=== PATIENT | female | born 1995 | race American Indian/Alaskan Native ===

== ENCOUNTER 2016-11-19 09:52 | Emergency (ER) | payer OTHER ==
[2016-11-19 11:13] LABS: Basophils % (Auto) 0.3 % (0.0-1.8); Eosinophils % (Auto) 0.8 % (0.0-4.3); Hemoglobin 12.9 gm/dl (10.1-14.3); Mean Corpuscular HGB Conc 32 % (30-34); Mean Corpuscular Hemoglobin 26 pg (28-32); Mean Corpuscular Volume 81 fl (79-97); Platelet Count 380 K/mm3 (140-440); Red Blood Count 4.92 M/mm3 (3.65-5.03); Red Cell Distribution Width 13.4 % (13.2-15.2); White Blood Count 14.4 K/mm3 (4.5-11.0)
[2016-11-19 11:29] LABS: Alanine Aminotransferase 9 units/L (7-56); Albumin 3.8 g/dL (3.9-5); Albumin/Globulin Ratio 0.9 %; Alkaline Phosphatase 111 units/L (35-129); Anion Gap 17 mmol/L; BUN/Creatinine Ratio 14.28; Bilirubin,Total 0.4 mg/dL (0.1-1.2); Blood Urea Nitrogen 10 mg/dL (7-17); Calcium 9.2 mg/dL (8.4-10.2); Carbon Dioxide 25 mmol/L (22-30); Chloride 99.2 mmol/L (98-107); Glucose 91 mg/dL (65-100); Lipase 17 units/L (13-60); Potassium 3.9 mmol/L (3.6-5.0); Sodium 137 mmol/L (137-145); Total Protein 8.1 g/dL (6.3-8.2)
[2016-11-19 11:38] LABS: Bilirubin,Urine NEG (Negative); Blood,Urine NEG (Negative); Ketones,Urine NEG (Negative); Leukocyte Esterase,Urine SM (Negative); Mucus,Urine 1+ /HPF; Nitrite,Urine NEG (Negative); Protein,Urine <15 mg/dL mg/dL (Negative); Urobilinogen,Urine < 2.0 mg/dL (<2.0)
[2016-11-19] MEDS ORDERED: MOTRIN PO ONE (14:13)
--- NOTE | 2016-11-19 14:18 | Emergency Department Report ---
ED Abdominal Pain HPI - General Chief Complaint: Abdominal Pain Stated Complaint: RT SIDE PAIN Time Seen by Provider: 11/19/16 10:43 Source: patient Mode of arrival: Ambulatory Limitations: No Limitations - History of Present Illness Initial Comments: 21 yo female with no significant past medical history presents to the hospital complaining of right abdominal pain since yesterday. Pt complains of intermittent sharp right upper quadrant pain rated 8/10 intensity. Pain is worse with palpation, movement, and deep inspiration. Patient denies associated symptoms including shortness of breath, nausea, vomiting, fever, dysuria, or hematuria. Patient saw her PMD earlier in the week for lower abdominal pain and was prescribed At his for constipation. She was told she will need outpatient [facility] ultrasound. - Related Data Previous Rx's Medication Instructions Recorded Last Taken Type Amoxicillin [Amoxicillin TAB] 875 mg PO BID #20 tablet 06/26/16 Unknown Rx Prednisone [predniSONE 10 mg 10 mg PO .TAPER #1 tab.ds.pk 06/26/16 Unknown Rx (6-Day Pack, 21 Tabs)] Amoxicillin/K Clav Tab [Augmentin 1 tab PO Q12HR #20 tab 06/30/16 Unknown Rx 875 mg] Lidocaine Viscous 2% 15 ml MM TID #100 ml 06/30/16 Unknown Rx traMADol [Ultram 50 MG tab] 50 mg PO Q6HR PRN #20 tablet 11/19/16 Unknown Rx Allergies Allergy/AdvReac Type Severity Reaction Status Date / Time No Known Allergies Allergy Verified 06/30/16 05:04 ED Review of Systems ROS: Stated complaint: RT SIDE PAIN Other details as noted in HPI Comment: All other systems reviewed and negative Other: Constitutional: No fevers chills Eyes: No eye pain visual changes ENT: No ear pain or throat pain Neck: Denies pain Respiratory: Denies cough wheezing shortness of breath Cardiovascular: Denies chest pain, palpitations, syncope GI: As per HPI : Denies dysuria Musculoskeletal: Denies back pain Skin: Denies rash, lesions, erythema Neurologic: Denies headache, numbness, weakness Psychiatric: Denies suicidal ideation, hallucinations ED Past Medical Hx - Past Medical History Previous Medical History?: Yes Additional medical history: constipatin - Surgical History Past Surgical History?: No - Social History Smoking Status: Current Every Day Smoker Substance Use Type: Other - Medications Home Medications: Home Medications Medication Instructions Recorded Confirmed Last Taken Type Amoxicillin [Amoxicillin TAB] 875 mg PO BID #20 tablet 06/26/16 Unknown Rx Prednisone [predniSONE 10 mg 10 mg PO .TAPER #1 tab.ds.pk 06/26/16 Unknown Rx (6-Day Pack, 21 Tabs)] Amoxicillin/K Clav Tab [Augmentin 1 tab PO Q12HR #20 tab 06/30/16 Unknown Rx 875 mg] Lidocaine Viscous 2% 15 ml MM TID #100 ml 06/30/16 Unknown Rx traMADol [Ultram 50 MG tab] 50 mg PO Q6HR PRN #20 tablet 11/19/16 Unknown Rx ED Physical Exam - General Limitations: No Limitations - Other Other exam information: General: No limitations, patient is alert in no acute distress Head exam: Atraumatic, normocephalic Eyes exam: Normal appearance, nonicteric sclera ENT: Moist mucous membrane, normal oropharynx Neck exam: Normal inspection, full range of motion Respiratory exam: Clear to auscultation bilateral, no wheezes, rales, crackles Cardiovascular: Normal rate and rhythm, normal heart sounds Abdomen: Soft, nondistended, tenderness along the right upper quadrant abdominal muscle when flexing abdominal muscles. No rebound or guarding Extremity: Full range of motion normal inspection no deformity Back: Normal Inspection, full range of motion, no tenderness Neurologic: Alert, oriented x3, cranial nerves intact, no motor or sensory deficit Psychiatric: normal affect, normal mood Skin: Warm, dry, intact ED Course Vital Signs 11/19/16 11/19/16 11/19/16 10:38 14:20 14:21 Temperature 98.6 F 98.2 F Pulse Rate 91 H 86 Respiratory 18 16 16 Rate Blood Pressure 132/82 Blood Pressure 124/73 [Right] O2 Sat by Pulse 99 100 100 Oximetry ED Medical Decision Making - Lab Data Result diagrams: 11/19/16 10:54 11/19/16 10:54 Lab Results 11/19/16 11/19/16 11/19/16 Range/Units 10:54 10:54 Unknown WBC 14.4 H (4.5-11.0) K/mm3 RBC 4.92 (3.65-5.03) M/mm3 Hgb 12.9 (10.1-14.3) gm/dl Hct 40.0 (30.3-42.9) % MCV 81 (79-97) fl MCH 26 L (28-32) pg MCHC 32 (30-34) % RDW 13.4 (13.2-15.2) % Plt Count 380 (140-440) K/mm3 Lymph % (Auto) 21.0 (13.4-35.0) % [place] % (Auto) 8.2 H (0.0-7.3) % Eos % (Auto) 0.8 (0.0-4.3) % Baso % (Auto) 0.3 (0.0-1.8) % Lymph # 3.0 (1.2-5.4) K/mm3 [place] # 1.2 H (0.0-0.8) K/mm3 Eos # 0.1 (0.0-0.4) K/mm3 Baso # 0.0 (0.0-0.1) K/mm3 Seg Neutrophils % 69.7 (40.0-70.0) % Seg Neutrophils # 10.0 H (1.8-7.7) K/mm3 Sodium 137 (137-145) mmol/L Potassium 3.9 (3.6-5.0) mmol/L Chloride 99.2 (98-107) mmol/L Carbon Dioxide 25 (22-30) mmol/L Anion Gap 17 mmol/L BUN 10 (7-17) mg/dL Creatinine 0.7 (0.7-1.2) mg/dL Estimated GFR > 60 ml/min BUN/Creatinine Ratio 14.28 % Glucose 91 (65-100) mg/dL Calcium 9.2 (8.4-10.2) mg/dL Total Bilirubin 0.4 (0.1-1.2) mg/dL AST 14 (5-40) units/L ALT 9 (7-56) units/L Alkaline Phosphatase 111 (35-129) units/L Total Protein 8.1 (6.3-8.2) g/dL Albumin 3.8 L (3.9-5) g/dL Albumin/Globulin Ratio 0.9 % Lipase 17 (13-60) units/L Urine Color Yellow (Yellow) Urine Turbidity Slightly-cloudy (Clear) Urine pH 6.0 (5.0-7.0) Ur Specific [place] 1.021 (1.003-1.030) Urine Protein <15 mg/dl (Negative) mg/dL Urine Glucose (UA) Neg (Negative) mg/dL Urine Ketones Neg (Negative) mg/dL Urine Blood Neg (Negative) Urine Nitrite Neg (Negative) Urine Bilirubin Neg (Negative) Urine Urobilinogen < 2.0 (<2.0) mg/dL Ur Leukocyte Esterase Sm (Negative) Urine WBC (Auto) 5.0 (0.0-6.0) /HPF Urine RBC (Auto) 1.0 (0.0-6.0) /HPF U Epithel Cells (Auto) 24.0 H (0-13.0) /HPF Urine Mucus 1+ /HPF Urine HCG, Qual (Negative) 11/19/16 Range/Units Unknown WBC (4.5-11.0) K/mm3 RBC (3.65-5.03) M/mm3 Hgb (10.1-14.3) gm/dl Hct (30.3-42.9) % MCV (79-97) fl MCH (28-32) pg MCHC (30-34) % RDW (13.2-15.2) % Plt Count (140-440) K/mm3 Lymph % (Auto) (13.4-35.0) % [place] % (Auto) (0.0-7.3) % Eos % (Auto) (0.0-4.3) % Baso % (Auto) (0.0-1.8) % Lymph # (1.2-5.4) K/mm3 [place] # (0.0-0.8) K/mm3 Eos # (0.0-0.4) K/mm3 Baso # (0.0-0.1) K/mm3 Seg Neutrophils % (40.0-70.0) % Seg Neutrophils # (1.8-7.7) K/mm3 Sodium (137-145) mmol/L Potassium (3.6-5.0) mmol/L Chloride (98-107) mmol/L Carbon Dioxide (22-30) mmol/L Anion Gap mmol/L BUN (7-17) mg/dL Creatinine (0.7-1.2) mg/dL Estimated GFR ml/min BUN/Creatinine Ratio % Glucose (65-100) mg/dL Calcium (8.4-10.2) mg/dL Total Bilirubin (0.1-1.2) mg/dL AST (5-40) units/L ALT (7-56) units/L Alkaline Phosphatase (35-129) units/L Total Protein (6.3-8.2) g/dL Albumin (3.9-5) g/dL Albumin/Globulin Ratio % Lipase (13-60) units/L Urine Color (Yellow) Urine Turbidity (Clear) Urine pH (5.0-7.0) Ur Specific [place] (1.003-1.030) Urine Protein (Negative) mg/dL Urine Glucose (UA) (Negative) mg/dL Urine Ketones (Negative) mg/dL Urine Blood (Negative) Urine Nitrite (Negative) Urine Bilirubin (Negative) Urine Urobilinogen (<2.0) mg/dL Ur Leukocyte Esterase (Negative) Urine WBC (Auto) (0.0-6.0) /HPF Urine RBC (Auto) (0.0-6.0) /HPF U Epithel Cells (Auto) (0-13.0) /HPF Urine Mucus /HPF Urine HCG, Qual Negative (Negative) - Radiology Data Radiology results: report reviewed ct a/p without contrast: 4mm stone in the right renal pelvis, no evidence of obstruction. - Medical Decision Making Plan to discharge patient home with pain medications for abdominal pain. Ultrasound negative for gallstones showed mild [place]. CT abdomen and pelvis without contrast does not reveal [place] but does reveal for Garcia stone in the right renal pelvis and no evidence of obstruction. No other abnormality identified. Suspect the patient's pain is due to abdominal wall strain since she lacks associated GI or respiratory symptoms and pain is reproducible with movement and palpation. - Differential Diagnosis biliary colic, abdominal muscle strain, infiltrate, PUD Critical Care Time: No Critical care attestation.: If time is entered above; I have spent that time in minutes in the direct care of this critically ill patient, excluding procedure time. ED Disposition Clinical Impression: Abdominal wall strain, Renal stone Disposition: DISCHARGED TO HOME OR SELFCARE Is pt being admited?: No Does the pt Need Aspirin: No Condition: Stable Instructions: Abdominal Pain (ED), Kidney Stones (ED) Additional Instructions: You may take [id number] ibuprofen and/or the prescribed tramadol for pain. Please note the tramadol can cause drowsiness and constipation. Take stool softeners as needed. Do not drive with taking this medication. Follow up with doctor for further evaluation. Return if symptoms worsen CAT scan shows a 4 mm stone in the right renal pelvis of the kidney without any signs of obstruction. This is unlikely the cause of your pain today. However, if you develop severe pain in your right flank with associated nausea, vomiting , and blood in your urine this can be the stone moving forward Prescriptions: traMADol [Ultram 50 MG tab] 50 mg PO Q6HR PRN #20 tablet PRN Reason: Pain Referrals: PRIMARY CARE, [Primary Care Provider] - 3-5 Days Time of Disposition: 17:03
[2016-11-19 14:21] VITALS: BP 124/73
--- NOTE | 2016-11-19 15:31 | Ultrasound Report ---
Limited abdominal ultrasound: Right upper quadrant pain. Imaging of the liver, pancreas, and gallbladder are echogenically unremarkable. The diameter of the CBD is 2.6 mm. The right renal length is 9.7 cm. The echogenicity of the kidney is unremarkable. There is mild dilatation of the central collecting system but there is no peripheral dilatation identified. No calculus, shadowing, or mass identified. The transverse diameter of the proximal abdominal aorta is 1.4 cm. Impressions: Suspect mild right hydronephrosis.
--- NOTE | 2016-11-19 16:55 | Cat Scan Report ---
CT of the abdomen and pelvis without contrast. History: Right abdominal pain/right hydronephrosis suspected on ultrasound performed today. Findings: The liver and spleen appear normal. The pancreas and gallbladder are unremarkable. The kidneys are normal in size and configuration with no evidence of renal mass. There is a 4 mm in diameter calcification which appears to lie in the dependent portion of the right renal pelvis, but no hydronephrosis is seen at this time. No ureteral calcifications or obstructing lesions are seen. There are no pelvic masses or abnormal fluid collections. No mesenteric inflammation is seen. The appendix is not identified, but there is no radiographic evidence of appendicitis. Impression: 4 mm stone in the right renal pelvis with no evidence of obstruction.
== END 2016-11-19 17:49 | disposition home or self-care (01) ==
LOC: ED 09:52
DX: S39.011A Strain of muscle, fascia and tendon of abdomen, initial encounter (principal); N20.0 Calculus of kidney; F17.200 Nicotine dependence, unspecified, uncomplicated; X58.XXXA Exposure to other specified factors, initial encounter; Y93.89 Activity, other specified; Y99.8 Other external cause status; Y92.89 Other specified places as the place of occurrence of the external cause
CPT/HCPCS: 36415; 74176; 76705; 80053; 81001; 81025; 83690; 85025

== ENCOUNTER 2016-11-25 10:33 | Emergency (ER) | payer OTHER ==
[2016-11-25 10:42] VITALS: BP 116/62
[2016-11-25] MEDS ORDERED: FLAGYL PO ONE (13:53)
[2016-11-25] MEDS ORDERED: XYLOCAINE 1% MPF 5 mL INFILTRATI ONE (13:53)
[2016-11-25] MEDS ORDERED: ZITHROMAX PO ONE (13:53)
[2016-11-25] MEDS ORDERED: ROCEPHIN IM ONE (13:53)
--- NOTE | 2016-11-25 14:08 | Emergency Department Report ---
ED Female HPI - General Chief complaint: Urogenital-Female Stated complaint: VAGINAL DISCHARGE Source: patient Mode of arrival: Ambulatory Limitations: No Limitations - History of Present Illness Initial comments: 21-year-old -[place] female comes in for complaint of vaginal discharge and possible STD exposure. Patient denies any abdominal pain no nausea no vomiting no fever no chills she also denies any dysuria. Patient reports that she sexually active one partner the last month she did not use protection. She reports vaginal discharge and itchiness 2 days. MD Complaint: vaginal discharge -: days(s) (2) Severity scale (0 -10): 0 - Related Data Previous Rx's Medication Instructions Recorded Last Taken Type Amoxicillin [Amoxicillin TAB] 875 mg PO BID #20 tablet 06/26/16 Unknown Rx Prednisone [predniSONE 10 mg 10 mg PO .TAPER #1 tab.ds.pk 06/26/16 Unknown Rx (6-Day Pack, 21 Tabs)] Amoxicillin/K Clav Tab [Augmentin 1 tab PO Q12HR #20 tab 06/30/16 Unknown Rx 875 mg] Lidocaine Viscous 2% 15 ml MM TID #100 ml 06/30/16 Unknown Rx traMADol [Ultram 50 MG tab] 50 mg PO Q6HR PRN #20 tablet 11/19/16 Unknown Rx Allergies Allergy/AdvReac Type Severity Reaction Status Date / Time No Known Allergies Allergy Verified 06/30/16 05:04 ED Review of Systems ROS: Stated complaint: VAGINAL DISCHARGE Other details as noted in HPI ED Past Medical Hx - Past Medical History Previous Medical History?: Yes Hx Kidney Stones: Yes Additional medical history: constipation - Surgical History Past Surgical History?: No - Social History Smoking Status: Current Every Day Smoker Substance Use Type: Non Opiate Pain - Medications Home Medications: Home Medications Medication Instructions Recorded Confirmed Last Taken Type Amoxicillin [Amoxicillin TAB] 875 mg PO BID #20 tablet 06/26/16 Unknown Rx Prednisone [predniSONE 10 mg 10 mg PO .TAPER #1 tab.ds.pk 06/26/16 Unknown Rx (6-Day Pack, 21 Tabs)] Amoxicillin/K Clav Tab [Augmentin 1 tab PO Q12HR #20 tab 06/30/16 Unknown Rx 875 mg] Lidocaine Viscous 2% 15 ml MM TID #100 ml 06/30/16 Unknown Rx traMADol [Ultram 50 MG tab] 50 mg PO Q6HR PRN #20 tablet 11/19/16 Unknown Rx ED Physical Exam - General Limitations: No Limitations - Head Head exam: Present: atraumatic, normocephalic - Respiratory Respiratory exam: Present: normal lung sounds bilaterally - Cardiovascular Cardiovascular Exam: Present: regular rate, normal rhythm, normal heart sounds - GI/Abdominal GI/Abdominal exam: Present: soft. Absent: distended, tenderness - Neurological Exam Neurological exam: Present: alert, oriented X3 - Psychiatric Psychiatric exam: Present: normal affect, normal mood ED Course Vital Signs 11/25/16 10:39 Temperature 98.7 F Pulse Rate 72 Respiratory 20 Rate Blood Pressure 116/62 O2 Sat by Pulse 99 Oximetry ED Medical Decision Making - Medical Decision Making Patient's been evaluated by this provider fast track. Discussed with patient that we will treat her presumptively for STDs with treated for Chlamydia gonorrhea and trichomonas. We will send cultures for gonorrhea and chlamydia. Discussed patient and she needs to talk to her partner to inform them that she is having vaginal discharge and able May want to be treated or tested. Patient verbalizes understanding. Critical care attestation.: If time is entered above; I have spent that time in minutes in the direct care of this critically ill patient, excluding procedure time. ED Disposition Clinical Impression: Possible exposure to STD Disposition: DISCHARGED TO HOME OR SELFCARE Is pt being admited?: No Does the pt Need Aspirin: No Condition: Stable Instructions: Safe Sex (ED), Sexually Transmitted Diseases (ED) Additional Instructions: Please inform your partner that you have been tested and treated for STDs. Encouraged to use condoms stay in a monogamous relationship also recommended for you to have HIV tests every 3-6 months if you have an unprotected intercourse. Referrals: PRIMARY CARE, [Primary Care Provider] - 3-5 Days Forms: Work/School Release Form(ED)
== END 2016-11-25 15:02 | disposition home or self-care (01) ==
LOC: ED 10:33
DX: Z20.2 Contact with and (suspected) exposure to infections with a predominantly sexual mode of transmission (principal); F17.210 Nicotine dependence, cigarettes, uncomplicated
CPT/HCPCS: 81025; 96372; 99283; J0696

== ENCOUNTER 2017-07-24 01:37 | Emergency (ER) | payer OTHER ==
[2017-07-24 05:43] LABS: Bilirubin,Urine NEG (Negative); Blood,Urine NEG (Negative); Ketones,Urine NEG (Negative); Leukocyte Esterase,Urine NEG (Negative); Mucus,Urine FEW /HPF; Nitrite,Urine NEG (Negative); Protein,Urine <15 mg/dL mg/dL (Negative); Urobilinogen,Urine < 2.0 mg/dL (<2.0)
--- NOTE | 2017-07-24 06:08 | Emergency Department Report ---
ED Female HPI - General Chief complaint: Urogenital-Female Stated complaint: STD Time Seen by Provider: 07/24/17 05:12 Source: patient Mode of arrival: Ambulatory Limitations: No Limitations - History of Present Illness Initial comments: This is a 21-year-old female nontoxic, well nourished in appearance, no acute signs of distress presents to the ED for a test. Patient stated she missed her menstrual cycle and took a test this morning with a positive result. Patient also states she is concerned about possible STD due to discomfort when urinating. Patient denies any vaginal discharge, fever, chills, nausea, dysuria, hematuria, polyuria, vomiting, abdominal pain, pelvic pain, vaginal bleeding, back pain. Patient describes discomfort as pressure when urinating. Patient denies any allergies. Past medical history includes kidney stones. MD Complaint: possible STD, other () -: days(s) (1) Severity scale (0 -10): 0 Improves with: none Worsens with: none Are you Now?: Yes Associated Symptoms: denies: vaginal discharge, vaginal bleeding, abdominal pain , nausea/vomiting, fever/chills, headaches, loss of appetite, dysuria, hematuria , rash, seizure, shortness of breath, syncope, weakness - Related Data Previous Rx's Medication Instructions Recorded Last Taken Type Amoxicillin [Amoxicillin TAB] 875 mg PO BID #20 tablet 06/26/16 Unknown Rx Prednisone [predniSONE 10 mg 10 mg PO .TAPER #1 tab.ds.pk 06/26/16 Unknown Rx (6-Day Pack, 21 Tabs)] Amoxicillin/K Clav Tab [Augmentin 1 tab PO Q12HR #20 tab 06/30/16 Unknown Rx 875 mg] Lidocaine Viscous 2% 15 ml MM TID #100 ml 06/30/16 Unknown Rx traMADol [Ultram 50 MG tab] 50 mg PO Q6HR PRN #20 tablet 11/19/16 Unknown Rx Allergies Allergy/AdvReac Type Severity Reaction Status Date / Time No Known Allergies Allergy Verified 06/30/16 05:04 ED Review of Systems ROS: Stated complaint: STD Other details as noted in HPI Constitutional: denies: chills, fever Eyes: denies: eye pain, eye discharge, vision change ENT: denies: ear pain, throat pain Respiratory: denies: cough, shortness of breath, wheezing Cardiovascular: denies: chest pain, palpitations Endocrine: no symptoms reported Gastrointestinal: denies: abdominal pain, nausea, diarrhea Genitourinary: denies: urgency, dysuria, discharge Musculoskeletal: denies: back pain, joint swelling, arthralgia Skin: denies: rash, lesions Neurological: denies: headache, weakness, paresthesias Psychiatric: denies: anxiety, depression Hematological/Lymphatic: denies: easy bleeding, easy bruising ED Past Medical Hx - Past Medical History Previous Medical History?: Yes Hx Kidney Stones: Yes Additional medical history: constipation - Surgical History Past Surgical History?: No - Social History Smoking Status: Never Smoker Substance Use Type: None - Medications Home Medications: Home Medications Medication Instructions Recorded Confirmed Last Taken Type Amoxicillin [Amoxicillin TAB] 875 mg PO BID #20 tablet 06/26/16 Unknown Rx Prednisone [predniSONE 10 mg 10 mg PO .TAPER #1 tab.ds.pk 06/26/16 Unknown Rx (6-Day Pack, 21 Tabs)] Amoxicillin/K Clav Tab [Augmentin 1 tab PO Q12HR #20 tab 06/30/16 Unknown Rx 875 mg] Lidocaine Viscous 2% 15 ml MM TID #100 ml 06/30/16 Unknown Rx traMADol [Ultram 50 MG tab] 50 mg PO Q6HR PRN #20 tablet 11/19/16 Unknown Rx ED Physical Exam - General Limitations: No Limitations General appearance: alert, in no apparent distress - Head Head exam: Present: atraumatic, normocephalic - Eye Eye exam: Present: normal appearance, PERRL, EOMI. Absent: scleral icterus, conjunctival injection, nystagmus, periorbital swelling, periorbital tenderness Pupils: Present: normal accommodation - ENT ENT exam: Present: normal exam, normal orophraynx, mucous membranes moist, TM's normal bilaterally, normal external ear exam - Neck Neck exam: Present: normal inspection - Respiratory Respiratory exam: Present: normal lung sounds bilaterally. Absent: respiratory distress - Cardiovascular Cardiovascular Exam: Present: regular rate, normal rhythm. Absent: systolic murmur, diastolic murmur, rubs, gallop - GI/Abdominal GI/Abdominal exam: Present: soft, normal bowel sounds - Extremities Exam Extremities exam: Present: normal inspection - Back Exam Back exam: Present: normal inspection - Neurological Exam Neurological exam: Present: alert, oriented X3 - Psychiatric Psychiatric exam: Present: normal affect, normal mood - Skin Skin exam: Present: warm, dry, intact, normal color. Absent: rash ED Course Vital Signs 07/24/17 02:21 Temperature 98.5 F Pulse Rate 82 Respiratory 18 Rate Blood Pressure 146/68 O2 Sat by Pulse 98 Oximetry - Reevaluation(s) Reevaluation #1: 07/24/17 06:05 Patient is speaking in full sentences with no signs of distress noted. ED Medical Decision Making - Medical Decision Making This is a 21-year-old female that presents with positive and possible STD. PAtient is stable and was examined by me. Ua within normal limits. Patient stated she refuses wet prep and g/c exam. Patient staed she just wants to be treated empirically. I instructed the patient that I will not know if patient has Trichomonas, bacterial vaginosis, or yeast infection the patient states she' ll follow-up with her [facility] for her. At time time of discharge, the patient does not seem toxic or ill in appearance. No acute signs of distress noted. Patient agrees to discharge treatment plan of care. No further questions noted by the patient. Critical care attestation.: If time is entered above; I have spent that time in minutes in the direct care of this critically ill patient, excluding procedure time. ED Disposition Clinical Impression: Possible exposure to STD Qualifiers: Weeks of gestation: unspecified Qualified Code(s): Z34.90 - Encounter for supervision of normal , unspecified, unspecified trimester Disposition: DC-01 TO HOME OR SELFCARE Is pt being admited?: No Does the pt Need Aspirin: No Condition: Stable Instructions: (ED), Safe Sex (ED) Additional Instructions: Follow-up with a [facility] OF ANALYTICAL DEVELOPMENT for further exam such as possible Trichomonas, bacterial vaginosis, yeast infection in 24 hours or if symptoms worsen and continue return to emergency room as soon as possible. Referrals: PRIMARY CAREMD [Primary Care Provider] - 3-5 Days [facility] [Outside] - 3-5 Days [facility] [Outside] - 3-5 Days SERGIO TURNER MD [Staff Physician] - 24 Hours [facility] [Provider Group] - 24 Hours Forms: Work/School Release Form(ED)
[2017-07-24 06:48] VITALS: BP 139/81
== END 2017-07-24 06:48 | disposition home or self-care (01) ==
LOC: ED 01:37
DX: Z34.90 Encounter for supervision of normal pregnancy, unspecified, unspecified trimester (principal)
CPT/HCPCS: 36415; 81001; 81025; 84702; 87086; 99283

== ENCOUNTER 2017-08-09 04:34 | Emergency (ER) | payer OTHER ==
[2017-08-09 06:35] LABS: Red Blood Count 4.68 M/mm3 (3.65-5.03); White Blood Count 13.3 K/mm3 (4.5-11.0)
[2017-08-09 06:36] LABS: Hematocrit 39.1 % (30.3-42.9); Hemoglobin 12.8 gm/dl (10.1-14.3); Mean Corpuscular HGB Conc 33 % (30-34); Mean Corpuscular Hemoglobin 27 pg (28-32); Mean Corpuscular Volume 84 fl (79-97); Platelet Count 323 K/mm3 (140-440); Red Cell Distribution Width 13.2 % (13.2-15.2)
[2017-08-09 07:25] LABS: Anisocytosis 1+; Basophils % (Manual) 0 % (0.0-1.8); Blastocytes % (Manual) 0 %; Diff Status Complete; Giant Platelets Rare; Polychromasia Rare; Stomatocytes 1+
[2017-08-09 07:38] LABS: Bilirubin,Urine NEG (Negative); Blood,Urine MOD (Negative); Ketones,Urine NEG (Negative); Leukocyte Esterase,Urine NEG (Negative); Mucus,Urine FEW /HPF; Nitrite,Urine NEG (Negative); Protein,Urine <15 mg/dL mg/dL (Negative); Urobilinogen,Urine < 2.0 mg/dL (<2.0)
[2017-08-09 08:08] VITALS: BP 142/50
--- NOTE | 2017-08-09 08:31 | Ultrasound Report ---
FINAL REPORT EXAM: US OB < = 14 WEEKS FETUS HISTORY: VAGINAL BLEEDING 7 WEEKS COMPARISONS: None. FINDINGS: Transabdominal grayscale, color Doppler and M-mode first-trimester ultrasound There is a single living intrauterine with recorded cardiac activity of 137 beats per minute and crown-rump length of approximately 11 millimeters corresponding to estimated gestational age of 7 weeks 1 day and delivery date of 03/27/2017. A small suggested perigestational hemorrhage involves less than 25 percent of the gestational sac surface area. There is no significant free fluid in the pelvis. A 2.7 centimeter functional right ovarian cyst is noted. The ovaries are otherwise sonographically unremarkable and measure 4.1 x 3.4 x 3.3 cm on the right and 3.8 x 2.2 x 2 cm on the left. IMPRESSION: Single living intrauterine as detailed above. There is a small perigestational hemorrhage involving less than 25 percent of the gestational sac surface area.
--- NOTE | 2017-08-09 12:06 | Emergency Department Report ---
ED Female HPI - General Chief complaint: Vaginal Bleeding Stated complaint: POSSIBLE MISCARRIAGE Time Seen by Provider: 08/09/17 12:02 Source: patient Mode of arrival: Ambulatory Limitations: No Limitations - History of Present Illness Initial comments: The patient has had a single visit with [facility] for . She is 7 weeks by dates. She started to have a small amount of vaginal bleeding yesterday between 3 and 4 PM. She has some cramping but that has not resolved. She does not complain of fever chills or any other specific symptoms. She is asymptomatic at this time. MD Complaint: vaginal bleeding -: minutes(s) Severity: mild Quality: cramping Consistency: now resolved Are you Now?: Yes Associated Symptoms: denies other symptoms - Related Data Sexually active: No Previous Rx's Medication Instructions Recorded Last Taken Type Amoxicillin [Amoxicillin TAB] 875 mg PO BID #20 tablet 06/26/16 Unknown Rx Prednisone [predniSONE 10 mg 10 mg PO .TAPER #1 tab.ds.pk 06/26/16 Unknown Rx (6-Day Pack, 21 Tabs)] Amoxicillin/K Clav Tab [Augmentin 1 tab PO Q12HR #20 tab 06/30/16 Unknown Rx 875 mg] Lidocaine Viscous 2% 15 ml MM TID #100 ml 06/30/16 Unknown Rx traMADol [Ultram 50 MG tab] 50 mg PO Q6HR PRN #20 tablet 11/19/16 Unknown Rx Allergies Allergy/AdvReac Type Severity Reaction Status Date / Time No Known Allergies Allergy Verified 06/30/16 05:04 ED Review of Systems ROS: Stated complaint: POSSIBLE MISCARRIAGE Other details as noted in HPI Constitutional: denies: chills, fever Eyes: denies: eye pain, eye discharge, vision change ENT: denies: ear pain, throat pain Respiratory: denies: cough, shortness of breath, wheezing Cardiovascular: denies: chest pain, palpitations Endocrine: no symptoms reported Gastrointestinal: denies: abdominal pain, nausea, diarrhea Genitourinary: abnormal menses. denies: urgency, dysuria, discharge Musculoskeletal: denies: back pain, joint swelling, arthralgia Skin: denies: rash, lesions Neurological: denies: headache, weakness, paresthesias Psychiatric: denies: anxiety, depression Hematological/Lymphatic: denies: easy bleeding, easy bruising ED Past Medical Hx - Past Medical History Previous Medical History?: Yes Hx Kidney Stones: Yes Additional medical history: constipation - Social History Smoking Status: Former Smoker - Medications Home Medications: Home Medications Medication Instructions Recorded Confirmed Last Taken Type Amoxicillin [Amoxicillin TAB] 875 mg PO BID #20 tablet 06/26/16 Unknown Rx Prednisone [predniSONE 10 mg 10 mg PO .TAPER #1 tab.ds.pk 06/26/16 Unknown Rx (6-Day Pack, 21 Tabs)] Amoxicillin/K Clav Tab [Augmentin 1 tab PO Q12HR #20 tab 06/30/16 Unknown Rx 875 mg] Lidocaine Viscous 2% 15 ml MM TID #100 ml 06/30/16 Unknown Rx traMADol [Ultram 50 MG tab] 50 mg PO Q6HR PRN #20 tablet 11/19/16 Unknown Rx ED Physical Exam - General Limitations: No Limitations General appearance: alert, in no apparent distress - Head Head exam: Present: atraumatic, normocephalic - Eye Eye exam: Present: normal appearance. Absent: scleral icterus - ENT ENT exam: Present: mucous membranes moist - Neck Neck exam: Present: normal inspection - Respiratory Respiratory exam: Present: normal lung sounds bilaterally. Absent: respiratory distress - Cardiovascular Cardiovascular Exam: Present: regular rate, normal rhythm. Absent: systolic murmur, diastolic murmur, rubs, gallop - GI/Abdominal GI/Abdominal exam: Present: soft, normal bowel sounds. Absent: distended, tenderness, guarding, rebound, rigid - Extremities Exam Extremities exam: Present: normal inspection - Back Exam Back exam: Present: normal inspection - Neurological Exam Neurological exam: Present: alert, oriented X3, CN II-XII intact. Absent: motor sensory deficit - Psychiatric Psychiatric exam: Present: normal affect, normal mood - Skin Skin exam: Present: warm, dry, intact, normal color. Absent: rash ED Course Vital Signs 08/09/17 08/09/17 05:50 08:07 Temperature 98.4 F 98.2 F Pulse Rate 70 72 Respiratory 20 18 Rate Blood Pressure 125/73 142/50 O2 Sat by Pulse 100 100 Oximetry ED Medical Decision Making - Lab Data Result diagrams: 08/09/17 06:00 Laboratory Results - last 24 hr 08/09/17 08/09/17 08/09/17 06:00 06:00 06:00 WBC 13.3 H RBC 4.68 Hgb 12.8 Hct 39.1 MCV 84 MCH 27 L MCHC 33 RDW 13.2 Plt Count 323 Add Manual Diff Complete Total Counted 100 Seg Neuts % (Manual) 62.0 Band Neutrophils % 0 Lymphocytes % (Manual) 31.0 Reactive Lymphs % (Man) 0 Monocytes % (Manual) 6.0 Eosinophils % (Manual) 1.0 Basophils % (Manual) 0 Metamyelocytes % 0 Myelocytes % 0 Promyelocytes % 0 Blast Cells % 0 Nucleated RBC % Not Reportable Seg Neutrophils # Man 8.2 H Band Neutrophils # 0.0 Lymphocytes # (Manual) 4.1 Abs React Lymphs (Man) 0.0 Monocytes # (Manual) 0.8 Eosinophils # (Manual) 0.1 Basophils # (Manual) 0.0 Metamyelocytes # 0.0 Myelocytes # 0.0 Promyelocytes # 0.0 Blast Cells # 0.0 WBC Morphology Not Reportable Hypersegmented Neuts Not Reportable Hyposegmented Neuts Not Reportable Hypogranular Neuts Not Reportable Smudge Cells Not Reportable Toxic Granulation Not Reportable Toxic Vacuolation Not Reportable Dohle Bodies Not Reportable Pelger-Huet Anomaly Not Reportable Rossy Rods Not Reportable Platelet Estimate Appears normal Clumped Platelets Not Reportable Plt Clumps, EDTA Not Reportable Large Platelets Not Reportable Giant Platelets Rare Platelet Satelliting Not Reportable Plt Morphology Comment Not Reportable RBC Morphology Not Reportable Dimorphic RBCs Not Reportable Polychromasia Rare Hypochromasia Not Reportable Poikilocytosis Not Reportable Anisocytosis 1+ Microcytosis Not Reportable Macrocytosis Not Reportable Spherocytes Not Reportable Pappenheimer Bodies Not Reportable Sickle Cells Not Reportable Target Cells Not Reportable Tear Drop Cells Not Reportable Ovalocytes Not Reportable Stomatocytes 1+ Helmet Cells Not Reportable Ramírez-Normanna Bodies Not Reportable [place] Rings Not Reportable [place] Cells Not Reportable Bite Cells Not Reportable Crenated Cell Not Reportable Elliptocytes Not Reportable Acanthocytes (Spur) Not Reportable Rouleaux Not Reportable Hemoglobin C Crystals Not Reportable Schistocytes Not Reportable Malaria parasites Not Reportable Sven Bodies Not Reportable Hem Pathologist Commnt No HCG, Quant 37647 H Urine Color Urine Turbidity Urine pH Ur Specific [place] Urine Protein Urine Glucose (UA) Urine Ketones Urine Blood Urine Nitrite Urine Bilirubin Urine Urobilinogen Ur Leukocyte Esterase Urine WBC (Auto) Urine RBC (Auto) U Epithel Cells (Auto) Urine Mucus Blood Type B POSITIVE Antibody Screen Negative 08/09/17 07:09 WBC RBC Hgb Hct MCV MCH MCHC RDW Plt Count Add Manual Diff Total Counted Seg Neuts % (Manual) Band Neutrophils % Lymphocytes % (Manual) Reactive Lymphs % (Man) Monocytes % (Manual) Eosinophils % (Manual) Basophils % (Manual) Metamyelocytes % Myelocytes % Promyelocytes % Blast Cells % Nucleated RBC % Seg Neutrophils # Man Band Neutrophils # Lymphocytes # (Manual) Abs React Lymphs (Man) Monocytes # (Manual) Eosinophils # (Manual) Basophils # (Manual) Metamyelocytes # Myelocytes # Promyelocytes # Blast Cells # WBC Morphology Hypersegmented Neuts Hyposegmented Neuts Hypogranular Neuts Smudge Cells Toxic Granulation Toxic Vacuolation Dohle Bodies Pelger-Huet Anomaly Rossy Rods Platelet Estimate Clumped Platelets Plt Clumps, EDTA Large Platelets Giant Platelets Platelet Satelliting Plt Morphology Comment RBC Morphology Dimorphic RBCs Polychromasia Hypochromasia Poikilocytosis Anisocytosis Microcytosis Macrocytosis Spherocytes Pappenheimer Bodies Sickle Cells Target Cells Tear Drop Cells Ovalocytes Stomatocytes Helmet Cells Ramírez-Normanna Bodies [place] Rings Awa Cells Bite Cells Crenated Cell Elliptocytes Acanthocytes (Spur) Rouleaux Hemoglobin C Crystals Schistocytes Malaria parasites Sven Bodies Hem Pathologist Commnt HCG, Quant Urine Color Yellow Urine Turbidity Clear Urine pH 7.0 Ur Specific [place] 1.026 Urine Protein <15 mg/dl Urine Glucose (UA) Neg Urine Ketones Neg Urine Blood Mod Urine Nitrite Neg Urine Bilirubin Neg Urine Urobilinogen < 2.0 Ur Leukocyte Esterase Neg Urine WBC (Auto) 2.0 Urine RBC (Auto) 4.0 U Epithel Cells (Auto) 2.0 Urine Mucus Few Blood Type Antibody Screen - Radiology Data Radiology results: report reviewed interpreted by me: Live 7 week plus regnancy heart rate noted with small jessica-gestational hemorrhage. Critical care attestation.: If time is entered above; I have spent that time in minutes in the direct care of this critically ill patient, excluding procedure time. ED Disposition Clinical Impression: Threatened Disposition: DC- TO HOME OR SELFCARE Is pt being admited?: No Does the pt Need Aspirin: No Condition: Stable Instructions: Threatened Miscarriage (ED) Additional Instructions: Follow-[facility] with [facility]. Return any acute change or problem. Rest next few days. Forms: Work/School Release Form(ED) Time of Disposition: 12:15
== END 2017-08-09 12:43 | disposition home or self-care (01) ==
LOC: ED 04:34
DX: O20.0 Threatened abortion (principal); Z3A.01 Less than 8 weeks gestation of pregnancy
CPT/HCPCS: 36415; 76801; 76817; 81001; 84702; 85007; 85025; 86850; 86900; 86901

== ENCOUNTER 2018-03-28 10:55 | Emergency (ER) | payer OTHER ==
[2018-03-28 11:07] VITALS: BP 113/67
--- NOTE | 2018-03-28 12:06 | Emergency Department Report ---
ED Medical Clearance HPI - General Chief complaint: Medical Clearance Stated complaint: /UTI/FOLLOW UP Time Seen by Provider: 03/28/18 11:37 Source: patient Mode of arrival: Ambulatory - History of Present Illness Initial comments: This is a 22-year-old female nontoxic in appearance with an ultrasound to distress and presents to the ER for a test. Patient stated had a positive test at home. Patient stated she told the triage nurse that she has vaginal discharge but patient stated she just said that to "come to the room faster". Patient currently denies any UTI or vaginal discharge. Patient states she is asymptomatic. Patient denies any vaginal bleeding, urinary symptoms, fever, chills, nausea, vomiting, chest pain, short of breath, headache or stiff neck, abdominal pain or pelvic pain. Patient denies any allergies. Past medical history includes HIV. MD Complaint: other ( test) Traumatic Symptoms: denies traumatic injury Associated Symptoms: denies other symptoms. denies: chest pain, shortness of breath, palpitations, diaphoresis, confusion, cough, fever/chills, headaches, anorexia, malaise, nausea/vomiting, rash, seizure, syncope, weakness Treatments Prior to Arrival: none Home medications: Previous Rx's Medication Instructions Recorded Last Taken Type 21/Iron Fu/Folic Acid 1 each PO DAILY #30 tablet 03/28/18 Unknown Rx [ Complete Caplet] Allergies/Adverse reactions: Allergies Allergy/AdvReac Type Severity Reaction Status Date / Time No Known Allergies Allergy Verified 06/30/16 05:04 ED Review of Systems ROS: Stated complaint: /UTI/FOLLOW UP Other details as noted in HPI Constitutional: denies: chills, fever Eyes: denies: eye pain, eye discharge, vision change ENT: denies: ear pain, throat pain Respiratory: denies: cough, shortness of breath, wheezing Cardiovascular: denies: chest pain, palpitations Endocrine: no symptoms reported Gastrointestinal: denies: abdominal pain, nausea, diarrhea Genitourinary: denies: urgency, dysuria, discharge Musculoskeletal: denies: back pain, joint swelling, arthralgia Skin: denies: rash, lesions Neurological: denies: headache, weakness, paresthesias Psychiatric: denies: anxiety, depression Hematological/Lymphatic: denies: easy bleeding, easy bruising ED Past Medical Hx - Past Medical History Hx Hypertension: No Hx Congestive Heart Failure: No Hx Diabetes: No Hx Deep Vein Thrombosis: No Hx Renal Disease: No Hx Sickle Cell Disease: No Hx Seizures: No Hx Kidney Stones: No Hx Asthma: No Hx COPD: No Hx HIV: Yes Additional medical history: constipation - Surgical History Past Surgical History?: No - Social History Smoking Status: Current Every Day Smoker Substance Use Type: None - Medications Home Medications: Home Medications Medication Instructions Recorded Confirmed Last Taken Type 21/Iron Fu/Folic Acid 1 each PO DAILY #30 tablet 03/28/18 Unknown Rx [ Complete Caplet] ED Physical Exam - General Limitations: No Limitations General appearance: alert, in no apparent distress - Head Head exam: Present: atraumatic, normocephalic - Eye Eye exam: Present: normal appearance - ENT ENT exam: Present: mucous membranes moist - Neck Neck exam: Present: normal inspection - Respiratory Respiratory exam: Present: normal lung sounds bilaterally. Absent: respiratory distress - Cardiovascular Cardiovascular Exam: Present: regular rate, normal rhythm. Absent: systolic murmur, diastolic murmur, rubs, gallop - GI/Abdominal GI/Abdominal exam: Present: soft, normal bowel sounds - Extremities Exam Extremities exam: Present: normal inspection - Back Exam Back exam: Present: normal inspection - Neurological Exam Neurological exam: Present: alert, oriented X3 - Psychiatric Psychiatric exam: Present: normal affect, normal mood - Skin Skin exam: Present: warm, dry, intact, normal color. Absent: rash ED Course Vital Signs 03/28/18 11:05 Temperature 98.5 F Pulse Rate 92 H Respiratory 16 Rate Blood Pressure 113/67 O2 Sat by Pulse 100 Oximetry - Reevaluation(s) Reevaluation #1: 03/28/18 12:04 Patient is speaking in full sentences with no signs of distress noted. ED Medical Decision Making - Medical Decision Making 22-year-old female that presents to the ER with tested. Patient is asymptomatic. Patient is able flex and by me. Quantitative test obtained. Patient notified of the results. Patient was instructed to Follow- up with a primary care/OBGYN doctor in 3-5 days or if symptoms worsen and continue return to emergency room as soon as possible. At time of discharge, the patient does not seem toxic or ill in appearance. No acute signs of distress noted. Patient agrees to discharge treatment plan of care. No further questions noted by the patient. ED Disposition Clinical Impression: test performed, confirmed Disposition: DC-01 TO HOME OR SELFCARE Is pt being admited?: No Does the pt Need Aspirin: No Condition: Stable Instructions: (ED) Additional Instructions: Follow-up with a primary care/OBGYN doctor in 3-5 days or if symptoms worsen and continue return to emergency room as soon as possible. Prescriptions: 21/Iron Fu/Folic Acid [ Complete Caplet] 1 each PO DAILY #30 tablet Referrals: PRIMARY CAREMD [Primary Care Provider] - 3-5 Days SERGIO TURNER MD [Staff Physician] - 3-5 Days [facility] [Provider Group] - 3-5 Days Forms: Work/School Release Form(ED)
== END 2018-03-28 13:34 | disposition home or self-care (01) ==
LOC: ED 10:55
DX: Z32.01 Encounter for pregnancy test, result positive (principal); K59.00 Constipation, unspecified; F17.200 Nicotine dependence, unspecified, uncomplicated; Z79.899 Other long term (current) drug therapy
CPT/HCPCS: 36415; 84702; 99282

== ENCOUNTER 2018-09-03 11:11 | Outpatient (CLI) | payer OTHER ==
[2018-09-03] MEDS ORDERED: LACTATED RINGERS 500 ML IV ONE ×2 (11:35→11:57)
[2018-09-03 11:41] VITALS: BP 123/71
[2018-09-03 12:31] LABS: Bacteria,Urine 4+ /HPF (Negative); Bilirubin,Urine NEG (Negative); Blood,Urine SM (Negative); Color,Urine Yellow (Yellow); Mucus,Urine FEW /HPF; Protein,Urine <15 mg/dL mg/dL (Negative)
== END 2018-09-03 13:15 | disposition home or self-care (01) ==
LOC: TRG 11:11
PROVIDERS: ATTEND Obstetrics & Gynecology
DX: O47.02 False labor before 37 completed weeks of gestation, second trimester (principal); Z3A.26 26 weeks gestation of pregnancy
CPT/HCPCS: 59025; 81001

== ENCOUNTER 2018-10-24 08:25 | Outpatient (CLI) | payer OTHER ==
[2018-10-24 09:11] VITALS: BP 133/66
[2018-10-24 09:56] LABS: Bacteria,Urine 2+ /HPF (Negative); Bilirubin,Urine NEG (Negative); Blood,Urine NEG (Negative); Color,Urine Yellow (Yellow); Mucus,Urine FEW /HPF; Urobilinogen,Urine < 2.0 mg/dL (<2.0)
--- NOTE | 2018-10-24 10:46 | Progress Note ---
Assessment and Plan A: at 34 weeks gestation. UTI. P: Rx Augmentin 500 mg po BID for 7 days. Advised patient to increase water intake and avoid sodas and bladder irritants. Advised pt. to keep her follow up appointment at [facility]. UTI warning signs discussed with pt. Advised pt. to return promptly if continued or worsening symptoms or any additional symptoms. Subjective - Subjective Date of service: 10/24/18 Principal diagnosis: at 34 weeks; UTI Interval history: 23 year old at 34 weeks gestation reports mild bilateral lower pelvic cramping for past 2 hours while at work. Patient denies contractions, leaking of fluid, vaginal bleeding, dysuria, urinary frequency, lower back pain, flank pain, fever, chills, malaise, or vomiting. Patient reports active movement. Patient states she has not been drinking enough water. Patient states she receives care from [facility]. She states she has a follow up appointment at [facility] in 4 days. Patient reports: movement normal, no loss of fluid, no vaginal bleeding, no contractions Objective - Vital Signs Vital Signs: Vital Signs - 12hr 10/24/18 10/24/18 09:09 09:23 Temperature 97.9 F Pulse Rate 86 86 Respiratory 18 Rate Blood Pressure 133/66 - Exam Narrative Exam: Urinalysis shows leukocytes, 2+ bacteria, 1+ protein. Abdomen: Present: normal appearance, soft. Absent: distention, tenderness, guarding, rigidity Uterus: Present: normal, fundal height above umbilicus FHR: category 1 Uterine Contraction Monitor Mode: External Uterine Contraction Pattern: Absent Extremities: normal - Labs Labs: Abnormal Labs 10/24/18 09:28 Urine WBC (Auto) 29.0 H Laboratory Results - last 24 hr 10/24/18 09:28 Urine Color Yellow Urine Turbidity Slightly-cloudy Urine pH 6.0 Ur Specific [place] 1.029 Urine Protein 30 mg/dl Urine Glucose (UA) Neg Urine Ketones Neg Urine Blood Neg Urine Nitrite Neg Urine Bilirubin Neg Urine Urobilinogen < 2.0 Ur Leukocyte Esterase Mod Urine WBC (Auto) 29.0 H Urine RBC (Auto) 8.0 U Epithel Cells (Auto) 7.0 Urine Bacteria (Auto) 2+ Urine Mucus Few
== END 2018-10-24 11:10 | disposition home or self-care (01) ==
LOC: TRG 08:25
PROVIDERS: ATTEND Obstetrics & Gynecology
DX: O47.03 False labor before 37 completed weeks of gestation, third trimester (principal); Z3A.34 34 weeks gestation of pregnancy
CPT/HCPCS: 59025; 81001

== ENCOUNTER 2019-03-31 12:24 | Emergency (ER) | payer MEDICAID, OTHER ==
--- NOTE | 2019-03-31 12:38 | Emergency Department Report ---
Blank Doc - Documentation Documentation: This is a 23-year-old female that presents with lower back pain. This initial assessment/diagnostic orders/clinical plan/treatment(s) is/are subject to change based on patient's health status, clinical progression and re- assessment by fellow clinical providers in the ED. Further treatment and workup at subsequent clinical providers discretion. Patient/guardians urged not to elope from the ED as their condition may be serious if not clinically assessed and managed. Initial orders include: 1- Patient sent to [facility] for further evaluation and treatment 2- UA
[2019-03-31 12:47] VITALS: BP 133/89
[2019-03-31 13:39] LABS: Bacteria,Urine 3+ /HPF (Negative); Bilirubin,Urine NEG (Negative); Blood,Urine MOD (Negative); Color,Urine Yellow (Yellow); Mucus,Urine FEW /HPF; Protein,Urine <15 mg/dL mg/dL (Negative); Urobilinogen,Urine < 2.0 mg/dL (<2.0)
[2019-03-31 13:41] LABS: WBC,Urine > 182.0 /HPF (0.0-6.0)
[2019-03-31 13:42] LABS: HCG Qualitative,Urine Negative (Negative)
--- NOTE | 2019-03-31 15:04 | Emergency Department Report ---
ED Back Pain/Injury HPI - General Chief Complaint: Back Pain/Injury Stated Complaint: SHAKY/BACK PAIN Time Seen by Provider: 03/31/19 12:36 Source: patient Limitations: No Limitations - History of Present Illness Initial Comments: 23-year-old female presents to ED with low back pain and chills. Patient states last night she began to experience fever and chills, with aching of the lower back. Patient also reported nausea, urinary frequency. Denies abdominal pain. MD Complaint: back pain -: Last night Similar Symptoms Previously: No Radiation: none Severity: moderate Quality: aching Consistency: constant Improves With: immobilization Worsens With: movement Associated Symptoms: fever/chills, nausea/vomiting. denies: difficulty urinating, incontinence - Related Data Home Medications Medication Instructions Recorded Confirmed Last Taken Emtricitabin/Tenofovir [TRUVADA 1 tab PO DAILY 10/24/18 11/28/18 11/28/18 21:00 200-300 mg] Raltegravir Potassium [Isentress] 400 mg PO BID 10/24/18 11/28/18 11/28/18 21:00 Previous Rx's Medication Instructions Recorded Last Taken Type 21/Iron Fu/Folic Acid 1 each PO DAILY #30 tablet 03/28/18 11/28/18 Rx [ Complete Caplet] Ibuprofen [Motrin] 800 mg PO Q8HR PRN #30 tablet 12/04/18 Unknown Rx oxyCODONE /ACETAMINOPHEN [Percocet 1 tab PO Q6HR PRN #30 tablet 12/04/18 Unknown Rx 5/325] Ciprofloxacin HCl [Ciprofloxacin 500 mg PO Q12HR 10 Days #20 tab 03/31/19 Unknown Rx TAB] Naproxen [Naprosyn] 500 mg PO BID #20 tablet 03/31/19 Unknown Rx Ondansetron [Zofran Odt] 4 mg PO Q8HR PRN #20 tab.rapdis 03/31/19 Unknown Rx traMADol [Ultram] 50 mg PO Q6HR PRN #7 tablet 03/31/19 Unknown Rx Allergies Allergy/AdvReac Type Severity Reaction Status Date / Time No Known Allergies Allergy Verified 03/31/19 12:27 ED Review of Systems ROS: Stated complaint: SHAKY/BACK PAIN Other details as noted in HPI Comment: All other systems reviewed and negative Constitutional: chills, fever Gastrointestinal: nausea. denies: abdominal pain, vomiting Genitourinary: frequency. denies: dysuria, discharge Musculoskeletal: back pain ED Past Medical Hx - Past Medical History Hx Hypertension: No Hx Heart Attack/AMI: No Hx Congestive Heart Failure: No Hx Diabetes: No Hx Deep Vein Thrombosis: No Hx Liver Disease: No Hx Renal Disease: No Hx Sickle Cell Disease: No Hx Seizures: No Hx Kidney Stones: No Hx Asthma: No Hx COPD: No Hx HIV: Yes (Patient on TRuvada and ISSentress) Additional medical history: constipation - Surgical History Past Surgical History?: No Hx Pacemaker: No Hx Internal Defibrillator: No - Social History Smoking Status: Never Smoker Substance Use Type: None, Marijuana - Medications Home Medications: Home Medications Medication Instructions Recorded Confirmed Last Taken Type 21/Iron Fu/Folic Acid 1 each PO DAILY #30 tablet 03/28/18 11/28/18 Rx [ Complete Caplet] Emtricitabin/Tenofovir [TRUVADA 1 tab PO DAILY 10/24/18 11/28/18 11/28/18 21:00 History 200-300 mg] Raltegravir Potassium [Isentress] 400 mg PO BID 10/24/18 11/28/18 11/28/18 21:00 History Ibuprofen [Motrin] 800 mg PO Q8HR PRN #30 tablet 12/04/18 Unknown Rx oxyCODONE /ACETAMINOPHEN [Percocet 1 tab PO Q6HR PRN #30 tablet 12/04/18 Unknown Rx 5/325] Ciprofloxacin HCl [Ciprofloxacin 500 mg PO Q12HR 10 Days #20 tab 03/31/19 Unknown Rx TAB] Naproxen [Naprosyn] 500 mg PO BID #20 tablet 03/31/19 Unknown Rx Ondansetron [Zofran Odt] 4 mg PO Q8HR PRN #20 tab.rapdis 03/31/19 Unknown Rx traMADol [Ultram] 50 mg PO Q6HR PRN #7 tablet 03/31/19 Unknown Rx ED Physical Exam - General Limitations: No Limitations General appearance: alert, in no apparent distress - Head Head exam: Present: atraumatic, normocephalic - Eye Eye exam: Present: normal appearance, PERRL, EOMI - ENT ENT exam: Present: mucous membranes moist - Neck Neck exam: Present: normal inspection - Respiratory Respiratory exam: Present: normal lung sounds bilaterally. Absent: respiratory distress - Cardiovascular Cardiovascular Exam: Present: normal rhythm, tachycardia - GI/Abdominal GI/Abdominal exam: Present: soft. Absent: distended, tenderness - Extremities Exam Extremities exam: Present: normal inspection - Back Exam Back exam: Present: paraspinal tenderness (lower bilateral lumbar). Absent: CVA tenderness (R), CVA tenderness (L) - Neurological Exam Neurological exam: Present: alert, oriented X3 - Psychiatric Psychiatric exam: Present: normal affect, normal mood - Skin Skin exam: Present: warm, dry, intact, normal color. Absent: rash ED Course Vital Signs 03/31/19 03/31/19 12:36 15:19 Temperature 98.8 F Pulse Rate 107 H 92 H Respiratory 18 16 Rate Blood Pressure 133/89 O2 Sat by Pulse 97 100 Oximetry ED Medical Decision Making - Medical Decision Making - vitals normal - pt reports fever, chills, lower back pain, urinary frequency - no CVA tenderness, however, pt does have lower lumbar tenderness - UA shows definite UTI - will treat as pyelo due to pt's hx of HIV - pt tolerationg PO - return precautions given - Differential Diagnosis uti, pyelonephritis, Critical care attestation.: If time is entered above; I have spent that time in minutes in the direct care of this critically ill patient, excluding procedure time. ED Disposition Clinical Impression: Pyelonephritis Disposition: DC- TO HOME OR SELFCARE Is pt being admited?: No Condition: Stable Instructions: Acute Pyelonephritis (ED) Prescriptions: Ciprofloxacin HCl [Ciprofloxacin TAB] 500 mg PO Q12HR 10 Days #20 tab Naproxen [Naprosyn] 500 mg PO BID #20 tablet traMADol [Ultram] 50 mg PO Q6HR PRN #7 tablet PRN Reason: Pain Ondansetron [Zofran Odt] 4 mg PO Q8HR PRN #20 tab.rapdis PRN Reason: Vomiting Referrals: MELISSA JUARES MD [Primary Care Provider] - 3-5 Days Time of Disposition: 15:06
== END 2019-03-31 15:19 | disposition home or self-care (01) ==
LOC: ED 12:24
DX: N12 Tubulo-interstitial nephritis, not specified as acute or chronic (principal)
CPT/HCPCS: 81001; 81025; 99283

== ENCOUNTER 2019-09-04 12:36 | Emergency (ER) | payer OTHER ==
--- NOTE | 2019-09-04 12:49 | Emergency Department Report ---
Blank Doc - Documentation Documentation: 23-year-old female that presents with fatigue and dizziness. This initial assessment/diagnostic orders/clinical plan/treatment(s) is/are subject to change based on patient's health status, clinical progression and re- assessment by fellow clinical providers in the ED. Further treatment and workup at subsequent clinical providers discretion. Patient/guardians urged not to elope from the ED as their condition may be serious if not clinically assessed and managed. Initial orders include: 1- Patient sent to [facility] for further evaluation and treatment 2- labs 3- UA
[2019-09-04 13:43] LABS: Bilirubin,Urine NEG (Negative); Blood,Urine NEG (Negative); Color,Urine Yellow (Yellow); Mucus,Urine FEW /HPF; Protein,Urine <15 mg/dL mg/dL (Negative); Urobilinogen,Urine < 2.0 mg/dL (<2.0)
[2019-09-04 14:29] LABS: Basophils # (Auto) 0.1 K/mm3 (0.0-0.1); Eosinophils # (Auto) 0.2 K/mm3 (0.0-0.4); Eosinophils % (Auto) 1.9 % (0.0-4.3); Hematocrit 39.4 % (30.3-42.9); Hemoglobin 12.6 gm/dl (10.1-14.3); Lymphocytes # (Auto) 3.8 K/mm3 (1.2-5.4); Lymphocytes % (Auto) 47.4 % (13.4-35.0); Mean Corpuscular HGB Conc 32 % (30-34); Mean Corpuscular Volume 85 fl (79-97); Monocytes # (Auto) 0.7 K/mm3 (0.0-0.8); Monocytes % (Auto) 8.6 % (0.0-7.3); Platelet Count 373 K/mm3 (140-440); Red Blood Count 4.64 M/mm3 (3.65-5.03); Red Cell Distribution Width 13.9 % (13.2-15.2)
[2019-09-04 15:29] LABS: BUN/Creatinine Ratio 15; Blood Urea Nitrogen 12 mg/dL (7-17); Calcium 9.5 mg/dL (8.4-10.2); Hemolysis Index 16
--- NOTE | 2019-09-04 18:00 | Emergency Department Report ---
- General Chief complaint: Weakness Stated complaint: LIGHT HEADED/FATIQUE Time Seen by Provider: 09/04/19 12:48 Source: patient Mode of arrival: Ambulatory Limitations: No Limitations - History of Present Illness Initial comments: 23-year-old female, history of HIV, presents to ED with fatigue and generalized weakness 3 days. Patient denies fever abdominal pain, vomiting, diarrhea, chest pain, shortness of breath. She reports cough, states she is getting over a cold. Patient states she has been more sleepy over the last 3 days. She also reports that she recently returned from a vacation in [place] and may be tired from that trip. Also concerned she may be anemic. MD Complaint: generalized weakness -: days(s) (3) Location: generalized Severity: mild Consistency: constant Improves with: rest Worsens with: none Associated Symptoms: denies: chest pain, confusion, fever/chills, headaches, nausea/vomiting, shortness of breath - Related Data Home Medications Medication Instructions Recorded Confirmed Last Taken Emtricitabin/Tenofovir [TRUVADA 1 tab PO DAILY 10/24/18 11/28/18 11/28/18 21:00 200-300 mg] Raltegravir Potassium [Isentress] 400 mg PO BID 10/24/18 11/28/18 11/28/18 21:00 Previous Rx's Medication Instructions Recorded Last Taken Type 21/Iron Fu/Folic Acid 1 each PO DAILY #30 tablet 03/28/18 11/28/18 Rx [ Complete Caplet] Ibuprofen [Motrin] 800 mg PO Q8HR PRN #30 tablet 12/04/18 Unknown Rx oxyCODONE /ACETAMINOPHEN [Percocet 1 tab PO Q6HR PRN #30 tablet 12/04/18 Unknown Rx 5/325] Ciprofloxacin HCl [Ciprofloxacin 500 mg PO Q12HR 10 Days #20 tab 03/31/19 Unknown Rx TAB] Naproxen [Naprosyn] 500 mg PO BID #20 tablet 03/31/19 Unknown Rx Ondansetron [Zofran Odt] 4 mg PO Q8HR PRN #20 tab.rapdis 03/31/19 Unknown Rx traMADoL [Ultram] 50 mg PO Q6HR PRN #7 tablet 03/31/19 Unknown Rx Sulfamethoxazole/Trimethoprim 1 each PO BID #6 tablet 09/04/19 Unknown Rx [Bactrim DS TAB] Allergies Allergy/AdvReac Type Severity Reaction Status Date / Time No Known Allergies Allergy Verified 03/31/19 12:27 ED Review of Systems ROS: Stated complaint: LIGHT HEADED/FATIQUE Other details as noted in HPI Comment: All other systems reviewed and negative Constitutional: denies: chills, fever Respiratory: cough. denies: shortness of breath Cardiovascular: denies: chest pain Gastrointestinal: denies: abdominal pain, vomiting, diarrhea Neurological: denies: headache ED Past Medical Hx - Past Medical History Previous Medical History?: Yes Hx Hypertension: No Hx Heart Attack/AMI: No Hx Congestive Heart Failure: No Hx Diabetes: No Hx Deep Vein Thrombosis: No Hx Liver Disease: No Hx Renal Disease: No Hx Sickle Cell Disease: No Hx Seizures: No Hx Kidney Stones: No Hx Asthma: No Hx COPD: No Hx HIV: Yes (on GENVOYA) Additional medical history: constipation - Surgical History Hx Pacemaker: No Hx Internal Defibrillator: No - Social History Smoking Status: Never Smoker Substance Use Type: None - Medications Home Medications: Home Medications Medication Instructions Recorded Confirmed Last Taken Type 21/Iron Fu/Folic Acid 1 each PO DAILY #30 tablet 03/28/18 11/28/18 11/28/18 Rx [ Complete Caplet] Emtricitabin/Tenofovir [TRUVADA 1 tab PO DAILY 10/24/18 11/28/18 11/28/18 21:00 History 200-300 mg] Raltegravir Potassium [Isentress] 400 mg PO BID 10/24/18 11/28/18 11/28/18 21:00 History Ibuprofen [Motrin] 800 mg PO Q8HR PRN #30 tablet 12/04/18 Unknown Rx oxyCODONE /ACETAMINOPHEN [Percocet 1 tab PO Q6HR PRN #30 tablet 12/04/18 Unknown Rx 5/325] Ciprofloxacin HCl [Ciprofloxacin 500 mg PO Q12HR 10 Days #20 tab 03/31/19 Unknown Rx TAB] Naproxen [Naprosyn] 500 mg PO BID #20 tablet 03/31/19 Unknown Rx Ondansetron [Zofran Odt] 4 mg PO Q8HR PRN #20 tab.rapdis 03/31/19 Unknown Rx traMADoL [Ultram] 50 mg PO Q6HR PRN #7 tablet 03/31/19 Unknown Rx Sulfamethoxazole/Trimethoprim 1 each PO BID #6 tablet 09/04/19 Unknown Rx [Bactrim DS TAB] ED Physical Exam - General Limitations: No Limitations General appearance: alert, in no apparent distress - Head Head exam: Present: atraumatic, normocephalic - Eye Eye exam: Present: normal appearance, PERRL, EOMI - ENT ENT exam: Present: mucous membranes moist - Neck Neck exam: Present: normal inspection - Respiratory Respiratory exam: Present: normal lung sounds bilaterally. Absent: respiratory distress - Cardiovascular Cardiovascular Exam: Present: regular rate, normal rhythm - GI/Abdominal GI/Abdominal exam: Present: soft. Absent: distended, tenderness - Extremities Exam Extremities exam: Present: normal inspection - Neurological Exam Neurological exam: Present: alert, oriented X3, CN II-XII intact. Absent: motor sensory deficit - Psychiatric Psychiatric exam: Present: normal affect, normal mood - Skin Skin exam: Present: warm, dry, intact, normal color ED Course Vital Signs 09/04/19 09/04/19 09/04/19 12:48 18:12 18:13 Temperature 98.4 F Pulse Rate 80 Pulse Rate [ 69 Lying] Pulse Rate [ 74 Sitting] Pulse Rate [ 74 Standing] Respiratory 18 Rate Blood Pressure 134/85 Blood Pressure 119/75 [Lying] Blood Pressure 130/84 [Sitting] Blood Pressure 119/74 [Standing] O2 Sat by Pulse 100 Oximetry ED Medical Decision Making - Lab Data Result diagrams: 09/04/19 14:11 09/04/19 14:11 Critical care attestation.: If time is entered above; I have spent that time in minutes in the direct care of this critically ill patient, excluding procedure time. ED Disposition Clinical Impression: Generalized weakness, UTI (urinary tract infection) Disposition: - TO HOME OR SELFCARE Is pt being admited?: No Condition: Stable Instructions: Urinary Tract Infection in Women (ED), Weakness (ED) Prescriptions: Sulfamethoxazole/Trimethoprim [Bactrim DS TAB] 1 each PO BID #6 tablet Referrals: PRIMARY CARE, [Primary Care Provider] - 3-5 Days Forms: Work/School Release Form(ED) Time of Disposition: 18:20
[2019-09-04 18:14] VITALS: BP 130/84
== END 2019-09-04 18:30 | disposition home or self-care (01) ==
LOC: ED 12:36
DX: N39.0 Urinary tract infection, site not specified (principal); R53.1 Weakness; R53.83 Other fatigue; R42 Dizziness and giddiness; Z21 Asymptomatic human immunodeficiency virus [HIV] infection status; Z79.899 Other long term (current) drug therapy
CPT/HCPCS: 36415; 80048; 81001; 84703; 85025; 87086

== ENCOUNTER 2019-09-19 12:39 | Emergency (ER) | payer OTHER ==
[2019-09-19 15:48] LABS: Hematocrit 36.7 % (30.3-42.9); Hemoglobin 12.1 gm/dl (10.1-14.3); Mean Corpuscular HGB Conc 33 % (30-34); Mean Corpuscular Volume 84 fl (79-97); Platelet Count 330 K/mm3 (140-440); Red Blood Count 4.36 M/mm3 (3.65-5.03); Red Cell Distribution Width 13.9 % (13.2-15.2)
[2019-09-19 16:11] LABS: Alanine Aminotransferase 16 units/L (7-56); Albumin 3.9 g/dL (3.9-5); BUN/Creatinine Ratio 17; Blood Urea Nitrogen 10 mg/dL (7-17); Calcium 9.5 mg/dL (8.4-10.2); Hemolysis Index 6
[2019-09-19 16:14] LABS: Bilirubin,Direct < 0.2 mg/dL (0-0.2)
[2019-09-19] MEDS ORDERED: IBUPROFEN 800 MG TAB PO ONE (16:21)
[2019-09-19] MEDS ORDERED: LIDOCAINE VISCOUS 2% 15 ML ORAL LIQD MM ONE (16:21)
[2019-09-19 17:09] LABS: Eosinophils % (Manual) 0 % (0.0-4.3); Total Cells Counted 100
[2019-09-19 17:10] LABS: Anisocytosis Few; Stomatocytes Few
[2019-09-19 17:11] LABS: Large Platelets 1+; Platelet Estimate Consistent w Auto
[2019-09-19 17:18] VITALS: BP 130/80
--- NOTE | 2019-09-19 17:31 | Emergency Department Report ---
ED ENT HPI - General Chief complaint: Sore Throat Stated complaint: TONSILES SWOLLEN Time Seen by Provider: 09/19/19 15:58 Source: patient Mode of arrival: Ambulatory Limitations: No Limitations - History of Present Illness Initial comments: This is a 23-year-old female nontoxic, well nourished in appearance, no acute signs of distress presents to the ED with c/o of sore throat x3 days. Patient stated was diagnosed with strep throat 2 days ago and was discharged with amox but stated pain is getting worse and symptoms are not resolved. Patient descr ibes sore throat as swallowing razer blades. Patient denies any fever, chills, headache, stiff neck, nausea, vomiting, chest pain, shortness of breath, numbness or tingling. Patient denies any drooling or hoarseness. Patient denies any allergies or significant past medical history. MD complaint: sore throat -: days(s) Location: throat Severity: mild Severity scale (0 -10): 8 Quality: aching Consistency: constant Improves with: none Worsens with: swallowing Associated Symptoms: pain with swallowing, sore throat. denies: fever, cough, gum swelling, toothache, tinnitus, hearing loss, discharge from ear, rhinorrhea - Related Data Home Medications Medication Instructions Recorded Confirmed Last Taken Emtricitabin/Tenofovir [TRUVADA 1 tab PO DAILY 10/24/18 11/28/18 11/28/18 21:00 200-300 mg] Raltegravir Potassium [Isentress] 400 mg PO BID 10/24/18 11/28/18 11/28/18 21:00 Previous Rx's Medication Instructions Recorded Last Taken Type 21/Iron Fu/Folic Acid 1 each PO DAILY #30 tablet 03/28/18 11/28/18 Rx [ Complete Caplet] Ibuprofen [Motrin] 800 mg PO Q8HR PRN #30 tablet 12/04/18 Unknown Rx oxyCODONE /ACETAMINOPHEN [Percocet 1 tab PO Q6HR PRN #30 tablet 12/04/18 Unknown Rx 5/325] Ciprofloxacin HCl [Ciprofloxacin 500 mg PO Q12HR 10 Days #20 tab 03/31/19 Unknown Rx TAB] Naproxen [Naprosyn] 500 mg PO BID #20 tablet 03/31/19 Unknown Rx Ondansetron [Zofran Odt] 4 mg PO Q8HR PRN #20 tab.rapdis 03/31/19 Unknown Rx traMADoL [Ultram] 50 mg PO Q6HR PRN #7 tablet 03/31/19 Unknown Rx Sulfamethoxazole/Trimethoprim 1 each PO BID #6 tablet 09/04/19 Unknown Rx [Bactrim DS TAB] Amoxicillin/K Clav Tab [Augmentin 1 tab PO Q12HR #20 tab 09/19/19 Unknown Rx 875 mg] Ibuprofen [Motrin] 600 mg PO Q8H PRN #20 tablet 09/19/19 Unknown Rx Nystas/Diphen/Xyl Visc/Mylanta 15 ml MM Q6H PRN 5 Days ml 09/19/19 Unknown Rx [Magic Mouthwash] Allergies Allergy/AdvReac Type Severity Reaction Status Date / Time No Known Allergies Allergy Verified 03/31/19 12:27 ED Dental HPI - General Chief complaint: Sore Throat Stated complaint: TONSILES SWOLLEN Time Seen by Provider: 09/19/19 15:58 Source: patient Mode of arrival: Ambulatory Limitations: No Limitations - Related Data Home Medications Medication Instructions Recorded Confirmed Last Taken Emtricitabin/Tenofovir [TRUVADA 1 tab PO DAILY 10/24/18 11/28/18 11/28/18 21:00 200-300 mg] Raltegravir Potassium [Isentress] 400 mg PO BID 10/24/18 11/28/18 11/28/18 21:00 Previous Rx's Medication Instructions Recorded Last Taken Type 21/Iron Fu/Folic Acid 1 each PO DAILY #30 tablet 03/28/18 11/28/18 Rx [ Complete Caplet] Ibuprofen [Motrin] 800 mg PO Q8HR PRN #30 tablet 12/04/18 Unknown Rx oxyCODONE /ACETAMINOPHEN [Percocet 1 tab PO Q6HR PRN #30 tablet 12/04/18 Unknown Rx 5/325] Ciprofloxacin HCl [Ciprofloxacin 500 mg PO Q12HR 10 Days #20 tab 03/31/19 Unknown Rx TAB] Naproxen [Naprosyn] 500 mg PO BID #20 tablet 03/31/19 Unknown Rx Ondansetron [Zofran Odt] 4 mg PO Q8HR PRN #20 tab.rapdis 03/31/19 Unknown Rx traMADoL [Ultram] 50 mg PO Q6HR PRN #7 tablet 03/31/19 Unknown Rx Sulfamethoxazole/Trimethoprim 1 each PO BID #6 tablet 09/04/19 Unknown Rx [Bactrim DS TAB] Amoxicillin/K Clav Tab [Augmentin 1 tab PO Q12HR #20 tab 09/19/19 Unknown Rx 875 mg] Ibuprofen [Motrin] 600 mg PO Q8H PRN #20 tablet 09/19/19 Unknown Rx Nystas/Diphen/Xyl Visc/Mylanta 15 ml MM Q6H PRN 5 Days ml 09/19/19 Unknown Rx [Magic Mouthwash] Allergies Allergy/AdvReac Type Severity Reaction Status Date / Time No Known Allergies Allergy Verified 03/31/19 12:27 ED Review of Systems ROS: Stated complaint: TONSILES SWOLLEN Other details as noted in HPI Constitutional: denies: chills, fever Eyes: denies: eye pain, eye discharge, vision change ENT: throat pain. denies: ear pain Respiratory: denies: cough, shortness of breath, wheezing Cardiovascular: denies: chest pain, palpitations Endocrine: no symptoms reported Gastrointestinal: denies: abdominal pain, nausea, diarrhea Genitourinary: denies: urgency, dysuria, discharge Musculoskeletal: denies: back pain, joint swelling, arthralgia Skin: denies: rash, lesions Neurological: denies: headache, weakness, paresthesias Psychiatric: denies: anxiety, depression Hematological/Lymphatic: denies: easy bleeding, easy bruising ED Past Medical Hx - Past Medical History Previous Medical History?: Yes Hx Hypertension: No Hx Heart Attack/AMI: No Hx Congestive Heart Failure: No Hx Diabetes: No Hx Deep Vein Thrombosis: No Hx Liver Disease: No Hx Renal Disease: No Hx Sickle Cell Disease: No Hx Seizures: No Hx Kidney Stones: No Hx Asthma: No Hx COPD: No Hx HIV: Yes (on GENVOYA) Additional medical history: constipation - Surgical History Past Surgical History?: No Hx Pacemaker: No Hx Internal Defibrillator: No - Social History Smoking Status: Current Every Day Smoker Substance Use Type: None - Medications Home Medications: Home Medications Medication Instructions Recorded Confirmed Last Taken Type 21/Iron Fu/Folic Acid 1 each PO DAILY #30 tablet 03/28/18 11/28/18 11/28/18 Rx [ Complete Caplet] Emtricitabin/Tenofovir [TRUVADA 1 tab PO DAILY 10/24/18 11/28/18 11/28/18 21:00 History 200-300 mg] Raltegravir Potassium [Isentress] 400 mg PO BID 10/24/18 11/28/18 11/28/18 21:00 History Ibuprofen [Motrin] 800 mg PO Q8HR PRN #30 tablet 12/04/18 Unknown Rx oxyCODONE /ACETAMINOPHEN [Percocet 1 tab PO Q6HR PRN #30 tablet 12/04/18 Unknown Rx 5/325] Ciprofloxacin HCl [Ciprofloxacin 500 mg PO Q12HR 10 Days #20 tab 03/31/19 Unknown Rx TAB] Naproxen [Naprosyn] 500 mg PO BID #20 tablet 03/31/19 Unknown Rx Ondansetron [Zofran Odt] 4 mg PO Q8HR PRN #20 tab.rapdis 03/31/19 Unknown Rx traMADoL [Ultram] 50 mg PO Q6HR PRN #7 tablet 03/31/19 Unknown Rx Sulfamethoxazole/Trimethoprim 1 each PO BID #6 tablet 09/04/19 Unknown Rx [Bactrim DS TAB] Amoxicillin/K Clav Tab [Augmentin 1 tab PO Q12HR #20 tab 09/19/19 Unknown Rx 875 mg] Ibuprofen [Motrin] 600 mg PO Q8H PRN #20 tablet 09/19/19 Unknown Rx Nystas/Diphen/Xyl Visc/Mylanta 15 ml MM Q6H PRN 5 Days ml 09/19/19 Unknown Rx [Magic Mouthwash] ED Physical Exam - General Limitations: No Limitations General appearance: alert, in no apparent distress - Head Head exam: Present: atraumatic, normocephalic - Eye Eye exam: Present: normal appearance - Expanded ENT Exam Expanded Ear exam: Present: normal external inspection Mouth exam: Present: normal external inspection. Absent: drooling, trismus, muffled voice Throat exam: Positive: tonsillar erythema, tonsillomegaly (2+), tonsillar exudate, other (uvula midline). Negative: R peritonsillar mass, L peritonsillar mass - Neck Neck exam: Present: normal inspection, full ROM. Absent: tenderness, meningismus, lymphadenopathy - Extremities Exam Extremities exam: Present: full ROM - Back Exam Back exam: Present: full ROM - Neurological Exam Neurological exam: Present: alert, oriented X3, normal gait - Psychiatric Psychiatric exam: Present: normal affect, normal mood - Skin Skin exam: Present: warm, dry, intact, normal color. Absent: rash ED Course Vital Signs 09/19/19 09/19/19 13:31 17:17 Temperature 98.8 F Pulse Rate 111 H 90 Respiratory 18 16 Rate Blood Pressure 131/83 Blood Pressure 130/80 [Left] O2 Sat by Pulse 99 100 Oximetry - Reevaluation(s) Reevaluation #1: 09/19/19 17:30 Patient is speaking in full sentences with no signs of distress noted. ED Medical Decision Making - Lab Data Result diagrams: 09/19/19 15:29 09/19/19 15:29 - Medical Decision Making This is a 23-year-old female that presents with tonsillitis exudate. Patient is stable and was examined by me. Labs obtained. Negative mono test. Patient was instructed to discontinue penicillin and patient be treated with Augmentin. Patient was instructed to Follow-up with a primary care doctor in 3-5 days or if symptoms worsen and continue return to emergency room as soon as possible. At time of discharge, the patient does not seem toxic or ill in appearance. No acute signs of distress noted. Patient agrees to discharge treatment plan of care. No further questions noted by the patient. Critical care attestation.: If time is entered above; I have spent that time in minutes in the direct care of this critically ill patient, excluding procedure time. ED Disposition Clinical Impression: Tonsillitis with exudate Disposition: DC-01 TO HOME OR SELFCARE Is pt being admited?: No Does the pt Need Aspirin: No Condition: Stable Instructions: Tonsillitis (ED) Additional Instructions: Follow-up with a primary care doctor in 3-5 days or if symptoms worsen and continue return to emergency room as soon as possible. Prescriptions: Amoxicillin/K Clav Tab [Augmentin 875 mg] 1 tab PO Q12HR #20 tab Nystas/Diphen/Xyl Visc/Mylanta [Magic Mouthwash] 15 ml MM Q6H PRN 5 Days ml PRN Reason: Sore Throat Ibuprofen [Motrin] 600 mg PO Q8H PRN #20 tablet PRN Reason: Pain Referrals: PRIMARY MD ELIANA [Primary Care Provider] - 3-5 Days NATALIA CHAVIRA MD [Staff Physician] - 3-5 Days [facility] [Outside] - 3-5 Days Forms: Work/School Release Form(ED)
== END 2019-09-19 17:49 | disposition home or self-care (01) ==
LOC: ED 12:39
DX: J03.80 Acute tonsillitis due to other specified organisms (principal); F17.200 Nicotine dependence, unspecified, uncomplicated; Z21 Asymptomatic human immunodeficiency virus [HIV] infection status; Z79.1 Long term (current) use of non-steroidal anti-inflammatories (NSAID); Z79.899 Other long term (current) drug therapy
CPT/HCPCS: 36415; 80048; 80076; 85007; 85025; 86308

== ENCOUNTER 2020-05-23 21:03 | Observation (INO) | payer OTHER ==
[2020-05-23] MEDS ORDERED: SODIUM CHLORIDE 0.9% 500 ML 500 ML IV ONE (21:16)
[2020-05-23 21:36] LABS: Hematocrit 35.6 % (30.3-42.9); Hemoglobin 11.4 gm/dl (10.1-14.3); Mean Corpuscular HGB Conc 32 % (30-34); Mean Corpuscular Volume 82 fl (79-97); Platelet Count 266 K/mm3 (140-440); Red Blood Count 4.35 M/mm3 (3.65-5.03); Red Cell Distribution Width 15.2 % (13.2-15.2)
[2020-05-23 21:46] LABS: INR 1.1 (0.87-1.13)
[2020-05-23] MEDS ORDERED: CEFEPIME/NS 2 GM/100 ML 2 GM/100 ML BAG IV ONE (21:49)
[2020-05-23] MEDS ORDERED: SODIUM CHLORIDE 0.9% 1000 ML IV SOLN IV ONE (21:50)
--- NOTE | 2020-05-23 21:50 | Emergency Department Report ---
ED Abdominal Pain HPI - General Chief Complaint: Abdominal Pain Stated Complaint: BACK PAIN/SINCERE PUI?: No Time Seen by Provider: 05/23/20 21:44 Source: patient Mode of arrival: Ambulatory Limitations: No Limitations - History of Present Illness Initial Comments: Patient is a 24-year-old female that presents emergency room with complaints of flank pain, abdominal pain, fever, nausea, difficulty breathing, shortness of breath, cough. Patient also complains of COVID symptoms. Patient states she has not been tested for COVID. Patient states she was diagnosed yesterday with a UTI. Patient states her abdominal pain is suprapubic. Patient states her abdominal pain is radiating to her right flank. Patient states her nausea and vomiting is mild. Patient states she thinks that she also has a kidney infection on top of her UTI. Patient states her symptoms started 3 days ago. Patient states her symptoms are worsening. Patient denies diarrhea. Patient complains of loss of smell. MD Complaint: abdominal pain -: Sudden Location: suprapubic Radiation: R flank Migration to: no migration Severity: severe Severity scale (0 -10): 10 Quality: stabbing Consistency: constant Improves With: rest Worsens With: vomiting, movement Associated Symptoms: nausea, vomiting, fever, chills, dysuria. denies: diarrhea - Related Data LMP (females 10-50): last week Home Medications Medication Instructions Recorded Confirmed Last Taken Emtricitabin/Tenofovir [TRUVADA 1 tab PO DAILY 10/24/18 11/28/18 11/28/18 21:00 200-300 mg] Raltegravir Potassium [Isentress] 400 mg PO BID 10/24/18 11/28/18 11/28/18 21:00 Previous Rx's Medication Instructions Recorded Last Taken Type 21/Iron Fu/Folic Acid 1 each PO DAILY #30 tablet 03/28/18 11/28/18 Rx [ Complete Caplet] Ibuprofen [Motrin] 800 mg PO Q8HR PRN #30 tablet 12/04/18 Unknown Rx oxyCODONE /ACETAMINOPHEN [Percocet 1 tab PO Q6HR PRN #30 tablet 12/04/18 Unknown Rx 5/325] Ciprofloxacin HCl [Ciprofloxacin 500 mg PO Q12HR 10 Days #20 tab 03/31/19 Unknown Rx TAB] Naproxen [Naprosyn] 500 mg PO BID #20 tablet 03/31/19 Unknown Rx Ondansetron [Zofran Odt] 4 mg PO Q8HR PRN #20 tab.rapdis 03/31/19 Unknown Rx traMADoL [Ultram] 50 mg PO Q6HR PRN #7 tablet 03/31/19 Unknown Rx Sulfamethoxazole/Trimethoprim 1 each PO BID #6 tablet 09/04/19 Unknown Rx [Bactrim DS TAB] Amoxicillin/K Clav Tab [Augmentin 1 tab PO Q12HR #20 tab 09/19/19 Unknown Rx 875 mg] Ibuprofen [Motrin] 600 mg PO Q8H PRN #20 tablet 09/19/19 Unknown Rx Nystas/Diphen/Xyl Visc/Mylanta 15 ml MM Q6H PRN 5 Days ml 09/19/19 Unknown Rx [Magic Mouthwash] Allergies Allergy/AdvReac Type Severity Reaction Status Date / Time No Known Allergies Allergy Verified 03/31/19 12:27 ED Review of Systems ROS: Stated complaint: BACK PAIN/SINCERE Other details as noted in HPI Constitutional: chills, fever, malaise Eyes: denies: eye pain, eye discharge, vision change ENT: denies: ear pain, throat pain Respiratory: cough, shortness of breath. denies: wheezing Cardiovascular: denies: chest pain, palpitations Endocrine: no symptoms reported Gastrointestinal: as per HPI, abdominal pain, nausea, vomiting. denies: diarrhea Genitourinary: as per HPI, urgency, dysuria. denies: discharge Musculoskeletal: denies: back pain, joint swelling, arthralgia Skin: denies: rash, lesions Neurological: denies: headache, weakness, paresthesias Psychiatric: denies: anxiety, depression Hematological/Lymphatic: denies: easy bleeding, easy bruising ED Past Medical Hx - Past Medical History Previous Medical History?: Yes Hx Hypertension: No Hx Heart Attack/AMI: No Hx Congestive Heart Failure: No Hx Diabetes: No Hx Deep Vein Thrombosis: No Hx Liver Disease: No Hx Renal Disease: No Hx Sickle Cell Disease: No Hx Seizures: No Hx Kidney Stones: No Hx Asthma: No Hx COPD: No Hx HIV: Yes (on GENVOYA) Additional medical history: constipation - Surgical History Past Surgical History?: No Hx Pacemaker: No Hx Internal Defibrillator: No - Family History Family history: no significant - Social History Smoking Status: Never Smoker Substance Use Type: None - Medications Home Medications: Home Medications Medication Instructions Recorded Confirmed Last Taken Type 21/Iron Fu/Folic Acid 1 each PO DAILY #30 tablet 03/28/18 11/28/18 11/28/18 Rx [ Complete Caplet] Emtricitabin/Tenofovir [TRUVADA 1 tab PO DAILY 10/24/18 11/28/18 11/28/18 21:00 History 200-300 mg] Raltegravir Potassium [Isentress] 400 mg PO BID 10/24/18 11/28/18 11/28/18 21:00 History Ibuprofen [Motrin] 800 mg PO Q8HR PRN #30 tablet 12/04/18 Unknown Rx oxyCODONE /ACETAMINOPHEN [Percocet 1 tab PO Q6HR PRN #30 tablet 12/04/18 Unknown Rx 5/325] Ciprofloxacin HCl [Ciprofloxacin 500 mg PO Q12HR 10 Days #20 tab 03/31/19 Unknown Rx TAB] Naproxen [Naprosyn] 500 mg PO BID #20 tablet 03/31/19 Unknown Rx Ondansetron [Zofran Odt] 4 mg PO Q8HR PRN #20 tab.rapdis 03/31/19 Unknown Rx traMADoL [Ultram] 50 mg PO Q6HR PRN #7 tablet 03/31/19 Unknown Rx Sulfamethoxazole/Trimethoprim 1 each PO BID #6 tablet 09/04/19 Unknown Rx [Bactrim DS TAB] Amoxicillin/K Clav Tab [Augmentin 1 tab PO Q12HR #20 tab 09/19/19 Unknown Rx 875 mg] Ibuprofen [Motrin] 600 mg PO Q8H PRN #20 tablet 09/19/19 Unknown Rx Nystas/Diphen/Xyl Visc/Mylanta 15 ml MM Q6H PRN 5 Days ml 09/19/19 Unknown Rx [Magic Mouthwash] ED Physical Exam - General Limitations: No Limitations General appearance: alert, in no apparent distress - Head Head exam: Present: atraumatic, normocephalic - Eye Eye exam: Present: normal appearance - ENT ENT exam: Present: mucous membranes moist - Neck Neck exam: Present: normal inspection - Respiratory Respiratory exam: Present: normal lung sounds bilaterally. Absent: respiratory distress, wheezes, rales - Cardiovascular Cardiovascular Exam: Present: regular rate, normal rhythm. Absent: systolic murmur, diastolic murmur, rubs, gallop - GI/Abdominal GI/Abdominal exam: Present: soft, tenderness, normal bowel sounds - Rectal Rectal exam: Present: deferred - Extremities Exam Extremities exam: Present: normal inspection - Back Exam Back exam: Present: normal inspection, tenderness, CVA tenderness (R) - Neurological Exam Neurological exam: Present: alert, oriented X3 - Psychiatric Psychiatric exam: Present: normal affect, normal mood - Skin Skin exam: Present: warm, dry, intact, normal color. Absent: rash ED Course Vital Signs 05/23/20 05/23/20 05/23/20 21:13 21:16 23:01 Temperature 102.8 F H 103 F H Pulse Rate 142 H 127 H 122 H Respiratory 18 24 20 Rate Blood Pressure 125/57 Blood Pressure 115/59 115/51 [Left] O2 Sat by Pulse 98 99 98 Oximetry - Reevaluation(s) Reevaluation #1: Initial evaluation done. Sepsis protocol was called in triage. Patient is not hypotensive. Patient has high fever and tachycardia. Patient will be given antibiotics and fluids. 05/23/20 22:02 Reevaluation #2: Patient temperature and heart rate have improved. Patient states her shortness of breath is better. Patient states her pain is better. 05/23/20 23:02 Reevaluation #3: Patient states she is feeling better. Patient has never been hypotensive. Patient still on a metal machinist. Patient still tachycardic but her heart rate is better. 05/24/20 00:45 Reevaluation #4: I discussed all results with patient. I discussed plan of care with patient. Patient agrees with plan of care and admission. Patient to be admitted to the hospitalist service. 05/24/20 01:37 - Consultations Consultation #1: Hospitalist consulted for admission. Hospitalist to admit patient. Bridge orders placed 05/24/20 01:37 Consultation #2: ID consult placed. COVID panel ordered. 05/24/20 01:44 ED Medical Decision Making - Lab Data Result diagrams: 05/23/20 21:19 05/24/20 01:24 - EKG Data -: EKG Interpreted by Me EKG shows normal: sinus rhythm, axis, intervals, QRS complexes, ST-T waves Rate: tachycardia - Radiology Data Radiology results: report reviewed, image reviewed interpreted by me: Chest x-ray: No pneumonia, no pneumothorax, no foreign body, no osseous findings, no acute findings CT abdomen pelvis w con INDICATION: abd pain. fever.. TECHNIQUE: All CT scans at this location are performed using CT dose reduction for ALARA by means of automated exposure control. COMPARISON: 11/19/2016 FINDINGS: Lung bases are clear of acute disease. Liver, gallbladder, spleen, pancreas, left kidney and both adrenals are negative. As on the previous exam, there is a 4 mm calculus in the right renal pelvis, which is currently nonobstructing. A second nonobstructing calculus is demonstrated in the lower pole of this right kidney. However, opacification of the right renal parenchyma is somewhat inhomogeneous, and the right kidney appears slightly edematous. No significant perinephric stranding. Pelvis Uterus and ovaries appear negative. Urinary bladder is mostly collapsed but grossly unremarkable. Minimal free fluid in the pelvis could well be physiologic in this 24-year-old woman. Appendix is normal. No significant bowel abnormalities. IMPRESSION: 1. Cortical and pelvic calculi in the right kidney, currently nonobstructing. However, inhomogeneous contrast opacification of this kidney certainly raises the possibility of right pyelonephritis. CHEST 1 VIEW INDICATION: possible Sepsis COMPARISON: None FINDINGS: Support devices: None Heart: Normal Lungs/Pleura: No acute pulmonary or pleural findings. IMPRESSION: 1. No acute disease. - Medical Decision Making Patient is a 24-year-old female who presents emergency room with complaints of cough, shortness of breath, abdominal pain, UTI, dysuria and fever.. Patient abdominal pain radiated to her right flank. Patient was recently diagnosed with a UTI and given Cipro by her outpatient physician. Patient found to be febrile and tachycardic. Patient had a sepsis protocol initiated in triage. Patient given fluids and antibiotics immediately upon initial evaluation. Patient had symptoms consistent with Covid. Patient had a chest x-ray and a Covid panel placed. Patient chest x-ray was negative. Patient had an IV consult. Patient had an abdominal CT done which showed pyelonephritis. Patient given IV antibiotics. Patient admitted to the hospitalist service. Patient had labs done and were unremarkable except elevated WBC. - Differential Diagnosis pui. covid, abd pain. uti, pyelo, sob Critical Care Time: Yes Critical care time in (mins) excluding proc time.: 35 Critical care attestation.: If time is entered above; I have spent that time in minutes in the direct care of this critically ill patient, excluding procedure time. Critical Care Time: 35 minutes ED Disposition Clinical Impression: Cough, Dysuria, SOB (shortness of breath), Person under investigation for COVID-19, SIRS (systemic inflammatory response syndrome), Tachycardia, Pyelo nephritis Abdominal pain Qualifiers: Abdominal location: lower abdomen, unspecified Qualified Code(s): R10.30 - Lower abdominal pain, unspecified Fever Qualifiers: Fever type: unspecified Qualified Code(s): R50.9 - Fever, unspecified Disposition: 09 OP ADMIT IP TO THIS HOSP Is pt being admited?: Yes Does the pt Need Aspirin: No Condition: Critical Time of Disposition: 01:38
[2020-05-23 21:55] LABS: Alanine Aminotransferase 15 units/L (7-56); Albumin 3.4 g/dL (3.9-5); BUN/Creatinine Ratio 8; Blood Urea Nitrogen 6 mg/dL (7-17); Calcium 8.7 mg/dL (8.4-10.2); Hemolysis Index 25
[2020-05-23] MEDS ORDERED: HYDROmorphone 1 MG/1 ML INJ IV ONE (22:07)
[2020-05-23] MEDS ORDERED: ACETAMINOPHEN 500 MG TAB ONE (22:13)
[2020-05-23] MEDS: ONDANSETRON 4 MG/2 ML INJ IV ONE ×2 (22:15→22:16)
[2020-05-23] MEDS ORDERED: ACETAMINOPHEN 500 MG TAB PO ONE (22:16)
[2020-05-23 22:52] LABS: Anisocytosis Few; Basophils % (Manual) 0 % (0.0-1.8); Eosinophils % (Manual) 0 % (0.0-4.3); Large Platelets 1+; Stomatocytes Few; Total Cells Counted 100
[2020-05-24] MEDS ORDERED: AZITHROMYCIN 500 MG in SODIUM CHLORIDE 0.9% 250ML 250 ML IV ONE (01:05)
--- NOTE | 2020-05-24 01:17 | Cat Scan Report ---
CT abdomen pelvis w con INDICATION: abd pain. fever.. TECHNIQUE: All CT scans at this location are performed using CT dose reduction for ALARA by means of automated e xposure control. COMPARISON: 11/19/2016 FINDINGS: Lung bases are clear of acute disease. Liver, gallbladder, spleen, pancreas, left kidney and both adr enals are negative. As on the previous exam, there is a 4 mm calculus in the right renal pelvis, whic h is currently nonobstructing. A second nonobstructing calculus is demonstrated in the lower pole of this right kidney. However, opacification of the right renal parenchyma is somewhat inhomogeneous, an d the right kidney appears slightly edematous. No significant perinephric stranding. Pelvis Uterus and ovaries appear negative. Urinary bladder is mostly collapsed but grossly unremarkable. Min imal free fluid in the pelvis could well be physiologic in this 24-year-old woman. Appendix is normal . No significant bowel abnormalities. IMPRESSION: 1. Cortical and pelvic calculi in the right kidney, currently nonobstructing. However, inhomogeneous contrast opacification of this kidney certainly raises the possibility of right pyelonephritis. Signer Name: Andrew Lance MD Signed: 05/24/2020 1:12 AM Workstation Name: [id number]
--- NOTE | 2020-05-24 01:45 | XRay Report ---
CHEST 1 VIEW INDICATION: possible Sepsis COMPARISON: None FINDINGS: Support devices: None Heart: Normal Lungs/Pleura: No acute pulmonary or pleural findings. IMPRESSION: 1. No acute disease. Signer Name: Andrew Lance MD Signed: 05/24/2020 1:41 AM Workstation Name: [id number]
[2020-05-24 02:04] LABS: Bilirubin,Urine NEG (Negative); Blood,Urine SM (Negative); Color,Urine Straw (Yellow); Mucus,Urine FEW /HPF; Protein,Urine <15 mg/dL mg/dL (Negative); Urobilinogen,Urine < 2.0 mg/dL (<2.0)
[2020-05-24 02:25] LABS: C-Reactive Protein 30.6 mg/dL (0.00-1.30)
--- NOTE | 2020-05-24 05:52 | History and Physical Report ---
History of Present Illness Date of examination: 05/24/20 Date of admission: 05/24/20 01:39 Chief complaint: Right flank pain and fever of 3 days. Cough and shortness of breath for 3 days. History of present illness: 24-year-old female with history of HIV comes in for flank pain fevers nausea difficulty breathing and shortness of breath and cough. Patient was diagnosed yesterday with urinary tract infection. Patient states that her right flank pain is about 6 on a scale of 1-10. Radiating to the right inguinal area. No fever or chills. No exposure to coronavirus. Patient has not been tested for covered. Patient has nausea. Symptoms started 3 days ago. - Past Medical History Previous Medical History?: Yes HIV: Yes (on GENVOYA) Additional medical history: constipation - Surgical History Past Surgical History?: No - Family History Family history: no significant - Social History Smoking Status: Never Smoker Substance Use Type: None - Medications Home Medications: Home Medications Medication Instructions Recorded Confirmed Last Taken Type 21/Iron Fu/Folic Acid 1 each PO DAILY #30 tablet 03/28/18 11/28/18 11/28/18 Rx [ Complete Caplet] Emtricitabin/Tenofovir [TRUVADA 1 tab PO DAILY 10/24/18 11/28/18 11/28/18 21:00 History 200-300 mg] Raltegravir Potassium [Isentress] 400 mg PO BID 10/24/18 11/28/18 11/28/18 21:00 History Ibuprofen [Motrin] 800 mg PO Q8HR PRN #30 tablet 12/04/18 Unknown Rx oxyCODONE /ACETAMINOPHEN [Percocet 1 tab PO Q6HR PRN #30 tablet 12/04/18 Unknown Rx 5/325] Ciprofloxacin HCl [Ciprofloxacin 500 mg PO Q12HR 10 Days #20 tab 03/31/19 Unknown Rx TAB] Naproxen [Naprosyn] 500 mg PO BID #20 tablet 03/31/19 Unknown Rx Ondansetron [Zofran Odt] 4 mg PO Q8HR PRN #20 tab.rapdis 03/31/19 Unknown Rx traMADoL [Ultram] 50 mg PO Q6HR PRN #7 tablet 03/31/19 Unknown Rx Sulfamethoxazole/Trimethoprim 1 each PO BID #6 tablet 09/04/19 Unknown Rx [Bactrim DS TAB] Amoxicillin/K Clav Tab [Augmentin 1 tab PO Q12HR #20 tab 09/19/19 Unknown Rx 875 mg] Ibuprofen [Motrin] 600 mg PO Q8H PRN #20 tablet 09/19/19 Unknown Rx Nystas/Diphen/Xyl Visc/Mylanta 15 ml MM Q6H PRN 5 Days ml 09/19/19 Unknown Rx [Magic Mouthwash] Review of Systems ROS: Stated complaint: BACK PAIN/SINCERE Other details as noted in HPI Constitutional: chills, fever, malaise Eyes: denies: eye pain, eye discharge, vision change ENT: denies: ear pain, throat pain Respiratory: cough, shortness of breath. denies: wheezing Cardiovascular: denies: chest pain, palpitations Endocrine: no symptoms reported Gastrointestinal: as per HPI, abdominal pain, nausea, vomiting. denies: diarrh ea Genitourinary: as per HPI, urgency, dysuria. denies: discharge Musculoskeletal: denies: back pain, joint swelling, arthralgia Skin: denies: rash, lesions Neurological: denies: headache, weakness, paresthesias Psychiatric: denies: anxiety, depression Hematological/Lymphatic: denies: easy bleeding, easy bruising Medications and Allergies Allergies Allergy/AdvReac Type Severity Reaction Status Date / Time No Known Allergies Allergy Verified 03/31/19 12:27 Home Medications Medication Instructions Recorded Confirmed Last Taken Type 21/Iron Fu/Folic Acid 1 each PO DAILY #30 tablet 03/28/18 11/28/18 11/28/18 Rx [ Complete Caplet] Emtricitabin/Tenofovir [TRUVADA 1 tab PO DAILY 10/24/18 11/28/18 11/28/18 21:00 History 200-300 mg] Raltegravir Potassium [Isentress] 400 mg PO BID 10/24/18 11/28/18 11/28/18 21:00 History Ibuprofen [Motrin] 800 mg PO Q8HR PRN #30 tablet 12/04/18 Unknown Rx oxyCODONE /ACETAMINOPHEN [Percocet 1 tab PO Q6HR PRN #30 tablet 12/04/18 Unknown Rx 5/325] Ciprofloxacin HCl [Ciprofloxacin 500 mg PO Q12HR 10 Days #20 tab 03/31/19 Unknown Rx TAB] Naproxen [Naprosyn] 500 mg PO BID #20 tablet 03/31/19 Unknown Rx Ondansetron [Zofran Odt] 4 mg PO Q8HR PRN #20 tab.rapdis 03/31/19 Unknown Rx traMADoL [Ultram] 50 mg PO Q6HR PRN #7 tablet 03/31/19 Unknown Rx Sulfamethoxazole/Trimethoprim 1 each PO BID #6 tablet 09/04/19 Unknown Rx [Bactrim DS TAB] Amoxicillin/K Clav Tab [Augmentin 1 tab PO Q12HR #20 tab 09/19/19 Unknown Rx 875 mg] Ibuprofen [Motrin] 600 mg PO Q8H PRN #20 tablet 09/19/19 Unknown Rx Nystas/Diphen/Xyl Visc/Mylanta 15 ml MM Q6H PRN 5 Days ml 09/19/19 Unknown Rx [Magic Mouthwash] Exam - Constitutional Vitals: Temp Pulse Resp BP Pulse Ox 103 F H 102 H 17 112/69 97 05/23/20 21:16 05/24/20 04:41 05/24/20 04:41 05/24/20 04:41 05/24/20 04:41 General appearance: Present: mild distress, well-nourished - EENT Eyes: Present: PERRL ENT: hearing intact, clear oral mucosa - Neck Neck: Present: supple, normal ROM - Respiratory Respiratory effort: normal Respiratory: bilateral: CTA - Cardiovascular Heart rate: 98 Rhythm: regular Heart Sounds: Present: S1 & S2. Absent: rub, click - Extremities Extremities: no ischemia, pulses symmetrical, No edema Peripheral Pulses: within normal limits - Abdominal General gastrointestinal: Present: soft, non-tender, non-distended, normal bowel sounds Localized gastrointestinal: tender: diffuse (Right flank), guarding: diffuse Female genitourinary: Present: normal - Rectal Rectal Exam: deferred - Integumentary Integumentary: Present: clear, warm, dry - Musculoskeletal Musculoskeletal: gait normal, strength equal bilaterally - Psychiatric Psychiatric: appropriate mood/affect, intact judgment & insight - Neurologic Neurologic: CNII-XII intact, moves all extremities - Allied Health Allied health notes reviewed: nursing, case management Results - Labs CBC & Chem 7: 05/23/20 21:19 05/24/20 01:24 Labs: Laboratory Last Values WBC 33.8 K/mm3 (4.5-11.0) H 05/23/20 21:19 RBC 4.35 M/mm3 (3.65-5.03) 05/23/20 21:19 Hgb 11.4 gm/dl (10.1-14.3) 05/23/20 21:19 Hct 35.6 % (30.3-42.9) 05/23/20 21:19 MCV 82 fl (79-97) 05/23/20 21:19 MCH 26 pg (28-32) L 05/23/20 21:19 MCHC 32 % (30-34) 05/23/20 21:19 RDW 15.2 % (13.2-15.2) 05/23/20 21:19 Plt Count 266 K/mm3 (140-440) 05/23/20 21:19 Add Manual Diff Complete 05/23/20 21: Total Counted 100 05/23/20 21:19 Seg Neuts % (Manual) 84.0 % (40.0-70.0) H 05/23/20 21:19 Band Neutrophils % 0 % 05/23/20 21: Lymphocytes % (Manual) 10.0 % (13.4-35.0) L 05/23/20 21:19 Reactive Lymphs % (Man) 0 % 05/23/20 21: Monocytes % (Manual) 6.0 % (0.0-7.3) 05/23/20 21:19 Eosinophils % (Manual) 0 % (0.0-4.3) 05/23/20 21: Basophils % (Manual) 0 % (0.0-1.8) 05/23/20 21: Metamyelocytes % 0 % 05/23/20 21:19 Myelocytes % 0 % 05/23/20 21:19 Promyelocytes % 0 % 05/23/20 21:19 Blast Cells % 0 % 05/23/20 21: Nucleated RBC % Not Reportable 05/23/20 21: Seg Neutrophils # Man 28.4 K/mm3 (1.8-7.7) H 05/23/20 21:19 Band Neutrophils # 0.0 K/mm3 05/23/20 21: Lymphocytes # (Manual) 3.4 K/mm3 (1.2-5.4) 05/23/20 21:19 Abs React Lymphs (Man) 0.0 K/mm3 05/23/20 21:19 Monocytes # (Manual) 2.0 K/mm3 (0.0-0.8) H 05/23/20 21:19 Eosinophils # (Manual) 0.0 K/mm3 (0.0-0.4) 05/23/20 21:19 Basophils # (Manual) 0.0 K/mm3 (0.0-0.1) 05/23/20 21:19 Metamyelocytes # 0.0 K/mm3 05/23/20 21:19 Myelocytes # 0.0 K/mm3 05/23/20 21:19 Promyelocytes # 0.0 K/mm3 05/23/20 21:19 Blast Cells # 0.0 K/mm3 05/23/20 21:19 Hypersegmented Neuts Not Reportable 05/23/20 21:19 Hyposegmented Neuts Not Reportable 05/23/20 21:19 Hypogranular Neuts Not Reportable 05/23/20 21:19 Smudge Cells Not Reportable 05/23/20 21:19 Toxic Granulation Not Reportable 05/23/20 21:19 Toxic Vacuolation Not Reportable 05/23/20 21:19 Dohle Bodies Not Reportable 05/23/20 21:19 Pelger-Huet Anomaly Not Reportable 05/23/20 21:19 Rossy Rods Not Reportable 05/23/20 21:19 Platelet Estimate Not Reportable 05/23/20 21:19 Clumped Platelets Not Reportable 05/23/20 21:19 Plt Clumps, EDTA Not Reportable 05/23/20 21:19 Large Platelets 1+ 05/23/20 21:19 Giant Platelets Not Reportable 05/23/20 21:19 Platelet Satelliting Not Reportable 05/23/20 21:19 Plt Morphology Comment Not Reportable 05/23/20 21:19 RBC Morphology Not Reportable 05/23/20 21:19 Dimorphic RBCs Not Reportable 05/23/20 21:19 Polychromasia Not Reportable 05/23/20 21:19 Hypochromasia Not Reportable 05/23/20 21:19 Poikilocytosis Not Reportable 05/23/20 21:19 Anisocytosis Few 05/23/20 21:19 Microcytosis Not Reportable 05/23/20 21:19 Macrocytosis Not Reportable 05/23/20 21:19 Spherocytes Not Reportable 05/23/20 21:19 Pappenheimer Bodies Not Reportable 05/23/20 21:19 Sickle Cells Not Reportable 05/23/20 21:19 Target Cells Not Reportable 05/23/20 21:19 Tear Drop Cells Not Reportable 05/23/20 21:19 Ovalocytes Not Reportable 05/23/20 21:19 Stomatocytes Few 05/23/20 21:19 Helmet Cells Not Reportable 05/23/20 21:19 Ramírez-Dermott Bodies Not Reportable 05/23/20 21:19 [place] Rings Not Reportable 05/23/20 21:19 [place] Cells Not Reportable 05/23/20 21:19 Bite Cells Not Reportable 05/23/20 21:19 Crenated Cell Not Reportable 05/23/20 21:19 Elliptocytes Not Reportable 05/23/20 21:19 Acanthocytes (Spur) Not Reportable 05/23/20 21:19 Rouleaux Not Reportable 05/23/20 21:19 Hemoglobin C Crystals Not Reportable 05/23/20 21:19 Schistocytes Not Reportable 05/23/20 21:19 Malaria parasites Not Reportable 05/23/20 21:19 Sven Bodies Not Reportable 05/23/20 21:19 Hem Pathologist Commnt Sent to pathology 05/23/20 21:19 PT 14.4 Sec. (12.2-14.9) 05/23/20 21:19 INR 1.10 (0.87-1.13) 05/23/20 21:19 D-Dimer 416.20 ng/mlDDU (0-234) H 05/24/20 01:24 VBG pH 7.448 (7.320-7.420) H 05/23/20 21:19 Sodium 134 mmol/L (137-145) L 05/23/20 21:19 Potassium 3.3 mmol/L (3.6-5.0) L 05/23/20 21:19 Chloride 98.4 mmol/L (98-107) 05/23/20 21:19 Carbon Dioxide 19 mmol/L (22-30) L 05/23/20 21:19 Anion Gap 20 mmol/L 05/23/20 21:19 BUN 6 mg/dL (7-17) L 05/23/20 21:19 Creatinine 0.8 mg/dL (0.6-1.2) 05/23/20 21:19 Estimated GFR > 60 ml/min 05/23/20 21:19 BUN/Creatinine Ratio 8 % 05/23/20 21:19 Glucose 117 mg/dL (65-100) H 05/24/20 01:24 Lactic Acid 1.10 mmol/L (0.7-2.0) 05/24/20 01:24 Calcium 8.7 mg/dL (8.4-10.2) 05/23/20 21:19 Ferritin 111.0 ng/mL (10.0-200.0) 05/24/20 01:24 Total Bilirubin 1.20 mg/dL (0.1-1.2) 05/23/20 21:19 AST 16 units/L (5-40) 05/23/20 21:19 ALT 15 units/L (7-56) 05/23/20 21:19 Alkaline Phosphatase 113 units/L (35-129) 05/23/20 21:19 Lactate Dehydrogenase 183 units/L (91-180) H 05/24/20 01:24 C-Reactive Protein 30.60 mg/dL (0.00-1.30) H 05/24/20 01:24 Total Protein 7.8 g/dL (6.3-8.2) 05/23/20 21:19 Albumin 3.4 g/dL (3.9-5) L 05/23/20 21:19 Albumin/Globulin Ratio 0.8 % 05/23/20 21:19 HCG, Qual Negative (Negative) 05/23/20 21:19 Urine Color Straw (Yellow) 05/23/20 Unknown Urine Turbidity Clear (Clear) 05/23/20 Unknown Urine pH 6.0 (5.0-7.0) 05/23/20 Unknown Ur Specific [place] 1.027 (1.003-1.030) 05/23/20 Unknown Urine Protein <15 mg/dl mg/dL (Negative) 05/23/20 Unknown Urine Glucose (UA) Neg mg/dL (Negative) 05/23/20 Unknown Urine Ketones Neg mg/dL (Negative) 05/23/20 Unknown Urine Blood Sm (Negative) 05/23/20 Unknown Urine Nitrite Neg (Negative) 05/23/20 Unknown Urine Bilirubin Neg (Negative) 05/23/20 Unknown Urine Urobilinogen < 2.0 mg/dL (<2.0) 05/23/20 Unknown Ur Leukocyte Esterase Neg (Negative) 05/23/20 Unknown Urine WBC (Auto) 2.0 /HPF (0.0-6.0) 05/23/20 Unknown Urine RBC (Auto) 2.0 /HPF (0.0-6.0) 05/23/20 Unknown U Epithel Cells (Auto) 1.0 /HPF (0-13.0) 05/23/20 Unknown Urine Mucus Few /HPF 05/23/20 Unknown Short CBC 05/23/20 Range/Units 21:19 WBC 33.8 H (4.5-11.0) K/mm3 Hgb 11.4 (10.1-14.3) gm/dl Hct 35.6 (30.3-42.9) % Plt Count 266 (140-440) K/mm3 BMP 05/23/20 05/24/20 21:19 01:24 Sodium 134 L Potassium 3.3 L Chloride 98.4 Carbon Dioxide 19 L BUN 6 L Creatinine 0.8 Glucose 128 H 117 H Calcium 8.7 Liver Function 05/23/20 Range/Units 21:19 Total Bilirubin 1.20 (0.1-1.2) mg/dL AST 16 (5-40) units/L ALT 15 (7-56) units/L Alkaline Phosphatase 113 (35-129) units/L Albumin 3.4 L (3.9-5) g/dL Urine 05/23/20 Range/Units Unknown Urine Color Straw (Yellow) Urine pH 6.0 (5.0-7.0) Ur Specific [place] 1.027 (1.003-1.030) Urine Protein <15 mg/dl (Negative) mg/dL Urine Glucose (UA) Neg (Negative) mg/dL Microbiology: Microbiology 05/23/20 21:28 Peripheral/Venous Blood Culture - Preliminary Culture in Progress 05/23/20 21:19 Peripheral/Venous Blood Culture - Preliminary Culture in Progress - Imaging and Cardiology Imaging and Cardiology: Chest x-ray No acute findings Abdominal CAT scan Cortical and pelvic calculi in the right kidney currently not obstructing. However inhomogeneous contrast opacification of kidney certainly raises the possibility of right pyelonephritis. Brito/IV: IV Catheter Type [Right INT / Saline Lock Antecubital] Assessment and Plan Advance Directives: Yes (Full code) VTE prophylaxis?: Chemical Plan of care discussed with patient/family: Yes - Patient Problems (1) Sepsis Current Visit: Yes Status: Acute Plan to address problem: Secondary to pyelonephritis Patient initiated on IV Rocephin (2) Pyelonephritis Current Visit: Yes Status: Acute Plan to address problem: Patient initiated on IV Rocephin Urine does not show any white blood cells but CAT scan shows pyelonephritis on the right side (3) Person under investigation for COVID-19 Current Visit: Yes Status: Acute Plan to address problem: Coronavirus PCR requested COVID unlikely Chest x-ray is normal (4) HIV (human immunodeficiency virus infection) Current Visit: Yes Status: Acute Qualifiers: HIV symptom status: asymptomatic Qualified Code(s): Z21 - Asymptomatic human immunodeficiency virus [HIV] infection status Plan to address problem: Continue antiretrovirals (5) DVT prophylaxis Current Visit: Yes Status: Acute Plan to address problem: Heparin and GI prophylaxis
[2020-05-24] MEDS ORDERED: ACETAMINOPHEN 325 MG TAB PO PRN (05:58)
[2020-05-24] MEDS ORDERED: ONDANSETRON 4 MG/2 ML INJ IV PRN (05:58)
[2020-05-24] MEDS: oxyCODONE /ACETAMINOPHEN 5-325MG TAB PO PRN (06:14)
[2020-05-24] MEDS ORDERED: oxyCODONE /ACETAMINOPHEN 5-325MG TAB ONE (06:14)
[2020-05-24] MEDS ORDERED: FAMOTIDINE 20 MG/2 ML INJ IV SCH (10:00)
--- NOTE | 2020-05-24 10:39 | Event Note ---
Date: 05/24/20 Admitted this morning with pyelonephritis on antibiotics, high suspicion for COVID P UI And history of HIV, patient seen and examined patient's chart reviewed, agree with the current management Follow tests and reports, plan of care reviewed with the patient and her nurse
[2020-05-24] MEDS: ENOXAPARIN 40 MG/0.4 ML INJ SUB-Q SCH (10:49)
[2020-05-24] MEDS: HYDROmorphone 1 MG/1 ML INJ IV PRN ×3 (10:50→23:19)
[2020-05-24] MEDS: FAMOTIDINE 20 MG TAB PO SCH ×2 (10:50→21:10)
[2020-05-24] MEDS: SODIUM CHLORIDE 0.9% 1000 ML 1,000 ML IV SCH ×2 (10:52→21:07)
--- NOTE | 2020-05-24 14:59 | Consultation ---
History of Present Illness - Reason for Consult Consult date: 05/24/20 COVID PUI, sepsis Requesting physician: FELICIA BRADLEY - History of Present Illness The patient is a 24-year-old female with HIV, on Genvoya was admitted to the hospital with right-sided flank pain for 3 days. She also was complaining of cough and shortness of breath for the same duration. Labs revealed significant leukocytosis. Fever of 103 F here. Chest x-ray did not show any pneumonia. CT scan suggestive of possible right-sided pyelonephritis. Infectious diseases consulted for additional evaluation. She reports being diagnosed with a UTI 2 days prior to coming in, took 1 dose of p.o. ciprofloxacin which she threw up and then came to the hospital. For her HIV, she reports compliance with Genvoya, undetectable viral load and follows up with ID clinic down the road, [facility], patient does not remember the name of her doctor. HIV was diagnosed probably around 2 years ago and she reports being on treatment since then. Review of Systems: General: Fever HEENT: no new visual disturbance Respiratory: Cough and shortness of breath Cardiovascular: No chest pain, syncope Gastrointestinal: No nausea, vomiting or diarrhea Genitourinary: urinary burning improved Musculoskeletal: No new or worsening neck pain or back pain Neurologic: No headaches, seizures Hematologic: No easy bruising or bleeding Endocrine: No night sweats or acute weight loss Skin: negative for rash, jaundice Psychiatric: No suicidal or homicidal ideation Medications and Allergies Allergies Allergy/AdvReac Type Severity Reaction Status Date / Time No Known Allergies Allergy Verified 03/31/19 12:27 Home Medications Medication Instructions Recorded Confirmed Last Taken Type Genvoya Tablet 1 tab PO DAILY 05/24/20 05/24/20 Unknown History Active Meds: Active Medications Acetaminophen (Tylenol) 650 mg PO Q4H PRN PRN Reason: Pain MILD(1-3)/Fever >100.5/MISTRY Last Admin: 05/24/20 14:07 Dose: 650 mg Documented by: Enoxaparin Sodium (Enoxaparin) 40 mg SUB-Q QDAY [facility] Last Admin: 05/24/20 10:49 Dose: 40 mg Documented by: Famotidine (Pepcid) 20 mg PO BID [facility] Last Admin: 05/24/20 10:50 Dose: 20 mg Documented by: Hydromorphone HCl (Dilaudid) 0.5 mg IV Q3H PRN PRN Reason: Pain , Severe (7-10) Last Admin: 05/24/20 10:50 Dose: 0.5 mg Documented by: Sodium Chloride (Nacl 0.9% 1000 Ml) 1,000 mls @ 100 mls/hr IV DIRECT TRIXIE Last Admin: 05/24/20 10:52 Dose: 100 mls/hr Documented by: Ondansetron HCl (Zofran) 4 mg IV Q8H PRN PRN Reason: Nausea And Vomiting Oxycodone/Acetaminophen (Percocet 5/325) 1 tab PO Q6H PRN PRN Reason: Pain, Moderate (4-6) Last Admin: 05/24/20 06:14 Dose: 1 tab Documented by: Sodium Chloride (Sodium Chloride Flush Syringe 10 Ml) 10 ml IV BID TRIXIE Last Admin: 05/24/20 10:50 Dose: 10 ml Documented by: Sodium Chloride (Sodium Chloride Flush Syringe 10 Ml) 10 ml IV PRN PRN PRN Reason: LINE FLUSH Physical Examination - Physical Exam Narrative exam: Physical Exam: Constitutional: Alert, cooperative. No acute distress Head, Ears, Nose: Normocephalic, atraumatic. External ears, nose normal Eyes: Conjunctivae/corneas clear. No icterus. No ptosis. Neck: Supple, no meningeal signs Cardiovascular: S1, S2 normal. Respiratory: Good air entry, clear to auscultation bilaterally GI: Soft, non-tender; bowel sounds normal. No peritoneal signs. Right CVA tenderness Musculoskeletal: No pedal edema, no cyanosis. Skin: No rash or abscess Hem/Lymphatic: No palpable cervical or supraclavicular nodes. No lymphangitis Psych: Mood ok. Affect normal Neurological: Awake, alert, oriented. No gross abnormality - Constitutional Vitals: Vital Signs Temp Pulse Resp BP Pulse Ox 103 F H 102 H 20 112/69 97 05/23/20 21:16 05/24/20 04:41 05/24/20 14:07 05/24/20 04:41 05/24/20 04:41 Temperature -Last 24 Hours Temperature 103 F Temperature 102.8 F Results - Labs CBC & Chem 7: 05/23/20 21:19 05/24/20 01:24 Labs: Abnormal lab results 05/23/20 05/23/2020 Range/Units 21:19 21:19 21:19 WBC 33.8 H (4.5-11.0) K/mm3 MCH 26 L (28-32) pg Seg Neuts % (Manual) 84.0 H (40.0-70.0) % Lymphocytes % (Manual) 10.0 L (13.4-35.0) % Seg Neutrophils # Man 28.4 H (1.8-7.7) K/mm3 Monocytes # (Manual) 2.0 H (0.0-0.8) K/mm3 D-Dimer (0-234) ng/mlDDU VBG pH 7.448 H (7.320-7.420) Sodium 134 L (137-145) mmol/L Potassium 3.3 L (3.6-5.0) mmol/L Carbon Dioxide 19 L (22-30) mmol/L BUN 6 L (7-17) mg/dL Glucose 128 H (65-100) mg/dL Lactate Dehydrogenase (91-180) units/L C-Reactive Protein (0.00-1.30) mg/dL Albumin 3.4 L (3.9-5) g/dL 05/24/20 05/24/20 Range/Units 01:24 01:24 WBC (4.5-11.0) K/mm3 MCH (28-32) pg Seg Neuts % (Manual) (40.0-70.0) % Lymphocytes % (Manual) (13.4-35.0) % Seg Neutrophils # Man (1.8-7.7) K/mm3 Monocytes # (Manual) (0.0-0.8) K/mm3 D-Dimer 416.20 H (0-234) ng/mlDDU VBG pH (7.320-7.420) Sodium (137-145) mmol/L Potassium (3.6-5.0) mmol/L Carbon Dioxide (22-30) mmol/L BUN (7-17) mg/dL Glucose 117 H (65-100) mg/dL Lactate Dehydrogenase 183 H (91-180) units/L C-Reactive Protein 30.60 H (0.00-1.30) mg/dL Albumin (3.9-5) g/dL - Imaging and Cardiology Chest x-ray: report reviewed, image reviewed (no pneumonia) CT scan - abdomen: report reviewed, image reviewed (?R pyelo) Assessment and Plan Cultures: 05/23/2020 blood culture: In process 05/23/2020 urine culture: In process A/P: 24-year-old female with HIV, on Genvoya was admitted to the hospital with right- sided flank pain for 3 days. She also was complaining of cough and shortness of breath for the same duration, reports being diagnosed with a UTI 2 days prior to coming in, took 1 dose of p.o. ciprofloxacin which she threw up and then came to the hospital: #Sepsis, likely secondary to right-sided pyelonephritis #Cough, shortness of breath: Chest x-ray without pneumonia. Follow-up COVID-19 PCR. #HIV: On Genvoya. Reports undetectable viral load, does not remember her CD4 count. Follows up with ID clinic down the road, [facility], patient does not remember the name of her doctor. Recs: IV cefepime 1 g every 8 hours Follow-up blood and urine culture Truvada + dolutegravir ordered, Genvoya is non-formulary patient agreeable to use therapeutic alternative f/u COVID PCR Haley Beebe MD, FACP [facility] O: [phone] F: [phone]
[2020-05-24] MEDS ORDERED: EMTRICITABINE 200 MG, TENOFOVIR 300 MG PO SCH (15:00)
[2020-05-24] MEDS: CEFEPIME/NS 1 GM/100 ML 1 GM/100 ML BAG IV SCH ×2 (18:35→23:21)
[2020-05-24] MEDS: EMTRICITABINE 200 MG CAP PO SCH (18:36)
[2020-05-24] MEDS: DOLUTEGRAVIR 50 MG TAB PO SCH (18:37)
[2020-05-24] MEDS: TENOFOVIR 300 MG TAB PO SCH (18:37)
[2020-05-25] MEDS: oxyCODONE /ACETAMINOPHEN 5-325MG TAB PO PRN ×2 (05:44→13:16)
[2020-05-25] MEDS: CEFEPIME/NS 1 GM/100 ML 1 GM/100 ML BAG IV SCH ×2 (08:04→15:57)
[2020-05-25] MEDS: SODIUM CHLORIDE 0.9% 1000 ML 1,000 ML IV SCH (08:04)
[2020-05-25] MEDS: DOLUTEGRAVIR 50 MG TAB PO SCH (09:32)
[2020-05-25] MEDS: FAMOTIDINE 20 MG TAB PO SCH (09:32)
[2020-05-25] MEDS: ENOXAPARIN 40 MG/0.4 ML INJ SUB-Q SCH (09:32)
[2020-05-25] MEDS: EMTRICITABINE 200 MG CAP PO SCH (09:32)
[2020-05-25] MEDS: TENOFOVIR 300 MG TAB PO SCH (09:32)
[2020-05-25 09:36] LABS: Alanine Aminotransferase 11 units/L (7-56); Blood Urea Nitrogen 5 mg/dL (7-17); Calcium 8.3 mg/dL (8.4-10.2); Hemolysis Index 0
[2020-05-25 09:37] LABS: BUN/Creatinine Ratio 7
[2020-05-25] MEDS ORDERED: POTASSIUM CHLORIDE ER 20 MEQ TAB PO ONE (12:17)
--- NOTE | 2020-05-25 12:51 | Progress Note ---
Assessment and Plan Cultures: 05/23/2020 blood culture: In process 05/23/2020 urine culture: In process A/P: 24-year-old female with HIV, on Genvoya was admitted to the hospital with right- sided flank pain for 3 days. She also was complaining of cough and shortness of breath for the same duration, reports being diagnosed with a UTI 2 days prior to coming in, took 1 dose of p.o. ciprofloxacin which she threw up and then came to the hospital: #Sepsis, likely secondary to right-sided pyelonephritis #Cough, shortness of breath: Chest x-ray without pneumonia. Negative COVID-19 PCR. #HIV: On Genvoya. Reports undetectable viral load, does not remember her CD4 count. Follows up with ID clinic down the road, [facility], patient does not remember the name of her doctor. Recs: Patient pleading to go home, stating she has young kids to take care of. Requesting PO abx. I explained, we don't have the culture results back, so PO abx therapy would be empiric. She understands and will return to the hospital if her symptoms worsened Can discharge on PO Cefdinir 300 mg BID x 10 days. Follow up cultures over the weekend D/W Dr. Maldonado for any bug-drug mismatch. I am off this weekend. Continue PO Genvoya and follow up with her outpatient HIV doc Haley Beebe MD, FACP [facility] ([facility] O: [phone] F: [phone] Subjective Date of service: 05/25/20 Interval history: Low grade temperature. Overall, she feels greatly improved and wants to go home because she has young kids. Feels about 80-90% better, mild flank pain still there. Objective - Exam Narrative Exam: Physical Exam: Constitutional: Alert, cooperative. No acute distress Head, Ears, Nose: Normocephalic, atraumatic. External ears, nose normal Eyes: Conjunctivae/corneas clear. No icterus. No ptosis. Neck: Supple, no meningeal signs Cardiovascular: S1, S2 normal. Respiratory: Good air entry, clear to auscultation bilaterally GI: Soft, non-tender; bowel sounds normal. No peritoneal signs. Mild right CVA tenderness Musculoskeletal: No pedal edema, no cyanosis. Skin: No rash or abscess Hem/Lymphatic: No palpable cervical or supraclavicular nodes. No lymphangitis Psych: Mood ok. Affect normal Neurological: Awake, alert, oriented. No gross abnormality - Constitutional Vitals: Vital Signs Temp Pulse Resp BP Pulse Ox 100.2 F H 98 H 20 129/88 98 05/25/20 05:58 05/25/20 05:58 05/25/20 05:58 05/25/20 05:58 05/25/20 05:58 Temperature -Last 24 Hours Temperature 100.2 F Temperature 100.6 F Temperature 99.0 F - Labs CBC & Chem 7: 05/23/20 21:19 05/25/20 08:46 Labs: Abnormal lab results 05/25/20 Range/Units 08:46 Potassium 3.2 L (3.6-5.0) mmol/L BUN 5 L (7-17) mg/dL Glucose 106 H (65-100) mg/dL Calcium 8.3 L (8.4-10.2) mg/dL Albumin 3.0 L (3.9-5) g/dL
[2020-05-25 13:22] LABS: Hematocrit 28.3 % (30.3-42.9); Hemoglobin 9.7 gm/dl (10.1-14.3); Mean Corpuscular HGB Conc 34 % (30-34); Mean Corpuscular Volume 79 fl (79-97); Platelet Count 311 K/mm3 (140-440); Red Blood Count 3.57 M/mm3 (3.65-5.03); Red Cell Distribution Width 14.9 % (13.2-15.2)
[2020-05-25 14:53] LABS: Band Neutrophils # (Manual) 0.2 K/mm3; Basophils % (Manual) 0 % (0.0-1.8); Eosinophils % (Manual) 0 % (0.0-4.3); Platelet Estimate Consistent w Auto; RBC Morphology Normal; Total Cells Counted 100
--- NOTE | 2020-05-25 16:11 | Progress Note ---
Assessment and Plan Assessment and plan: --Suspicion for COVID/P UI; Joyce PCR negative DC isolation --Acute right-sided pyelonephritis; IV fluids, IV antibiotics cefepime Follow cultures, supportive care --Sepsis secondary to pyelonephritis; Continue above treatment --Cough and congestion chest, chest x-ray no pneumonia COVID-19 test negative, cough medicine and supportive care --H/O HIV; patient [facility] Advised to follow upon discharge --Morbid obesity; BMI 39.3 Counseling done advised diet restriction , exercise as tolerated and weight reduction And lifestyle modification when medically stable --DVT prophylaxis; Lovenox We will closely monitor the patient and adjust management as needed Plan of care reviewed with the patient and her nurse I also discussed with ID Dr. Beebe Patient is begging and pleading to be discharged However I explained to the patient the importance of getting the treatment for acute pyelonephritis With IV antibiotics at least for total 3 days, and transition to oral antib iotics and follow-up with ID as outpatient. ID recommend p.o. cefdinir 300 mg twice a day for 10 days, if patient insists on leaving and to follow-up with outpatient ID And call and find out the pending cultures and sensitivities. The above decision is discussed with the patient History Interval history: I have seen and examined the patient at the bedside this morning Patient's chart and medications reviewed Patient was admitted with high suspicion for COVID, COVID test is negative And right pyelonephritis, on IV antibiotics Patient feels slightly better Wants to go home Vital signs noted Hospitalist Physical - Constitutional Vitals: Temp Pulse Resp BP Pulse Ox 98.7 F 71 18 135/94 100 05/25/20 15:33 05/25/20 15:33 05/25/20 15:33 05/25/20 15:33 05/25/20 15:33 General appearance: Present: mild distress, well-nourished, obese - EENT Eyes: Present: PERRL - Neck Neck: Present: supple, normal ROM - Respiratory Respiratory effort: normal Respiratory: bilateral: diminished, negative: rales, rhonchi, wheezing - Cardiovascular Rhythm: regular Heart Sounds: Present: S1 & S2 - Extremities Extremities: no ischemia, No edema - Abdominal General gastrointestinal: soft, non-tender, non-distended, normal bowel sounds - Integumentary Integumentary: Present: clear, warm - Psychiatric Psychiatric: appropriate mood/affect, memory intact - Neurologic Neurologic: moves all extremities Results - Labs CBC & Chem 7: 05/25/20 12:37 05/25/20 08:46 Labs: Laboratory Last Values WBC 24.5 K/mm3 (4.5-11.0) H 05/25/20 12:37 RBC 3.57 M/mm3 (3.65-5.03) L 05/25/20 12:37 Hgb 9.7 gm/dl (10.1-14.3) L 05/25/20 12:37 Hct 28.3 % (30.3-42.9) L D 05/25/20 12:37 MCV 79 fl (79-97) 05/25/20 12:37 MCH 27 pg (28-32) L 05/25/20 12:37 MCHC 34 % (30-34) 05/25/20 12:37 RDW 14.9 % (13.2-15.2) 05/25/20 12:37 Plt Count 311 K/mm3 (140-440) 05/25/20 12:37 Add Manual Diff Complete 05/25/20 12:37 Total Counted 100 05/25/20 12:37 Seg Neuts % (Manual) 75.0 % (40.0-70.0) H 05/25/20 12:37 Band Neutrophils % 1.0 % 05/25/20 12:37 Lymphocytes % (Manual) 16.0 % (13.4-35.0) 05/25/20 12:37 Reactive Lymphs % (Man) 0 % 05/25/20 12:37 Monocytes % (Manual) 8.0 % (0.0-7.3) H 05/25/20 12:37 Eosinophils % (Manual) 0 % (0.0-4.3) 05/25/20 12:37 Basophils % (Manual) 0 % (0.0-1.8) 05/25/20 12:37 Metamyelocytes % 0 % 05/25/20 12:37 Myelocytes % 0 % 05/25/20 12:37 Promyelocytes % 0 % 05/25/20 12:37 Blast Cells % 0 % 05/25/20 12:37 Nucleated RBC % Not Reportable 05/25/20 12:37 Seg Neutrophils # Man 18.4 K/mm3 (1.8-7.7) H 05/25/20 12:37 Band Neutrophils # 0.2 K/mm3 05/25/20 12:37 Lymphocytes # (Manual) 3.9 K/mm3 (1.2-5.4) 05/25/20 12:37 Abs React Lymphs (Man) 0.0 K/mm3 05/25/20 12:37 Monocytes # (Manual) 2.0 K/mm3 (0.0-0.8) H 05/25/20 12:37 Eosinophils # (Manual) 0.0 K/mm3 (0.0-0.4) 05/25/20 12:37 Basophils # (Manual) 0.0 K/mm3 (0.0-0.1) 05/25/20 12:37 Metamyelocytes # 0.0 K/mm3 05/25/20 12:37 Myelocytes # 0.0 K/mm3 05/25/20 12:37 Promyelocytes # 0.0 K/mm3 05/25/20 12:37 Blast Cells # 0.0 K/mm3 05/25/20 12:37 WBC Morphology Not Reportable 05/25/20 12:37 Hypersegmented Neuts Not Reportable 05/25/20 12:37 Hyposegmented Neuts Not Reportable 05/25/20 12:37 Hypogranular Neuts Not Reportable 05/25/20 12:37 Smudge Cells Not Reportable 05/25/20 12:37 Toxic Granulation Not Reportable 05/25/20 12:37 Toxic Vacuolation Not Reportable 05/25/20 12:37 Dohle Bodies Not Reportable 05/25/20 12:37 Pelger-Huet Anomaly Not Reportable 05/25/20 12:37 Rossy Rods Not Reportable 05/25/20 12:37 Platelet Estimate Consistent w auto 05/25/20 12:37 Clumped Platelets Not Reportable 05/25/20 12:37 Plt Clumps, EDTA Not Reportable 05/25/20 12:37 Large Platelets Not Reportable 05/25/20 12:37 Giant Platelets Not Reportable 05/25/20 12:37 Platelet Satelliting Not Reportable 05/25/20 12:37 Plt Morphology Comment Not Reportable 05/25/20 12:37 RBC Morphology Normal 05/25/20 12:37 Dimorphic RBCs Not Reportable 05/25/20 12:37 Polychromasia Not Reportable 05/25/20 12:37 Hypochromasia Not Reportable 05/25/20 12:37 Poikilocytosis Not Reportable 05/25/20 12:37 Anisocytosis Not Reportable 05/25/20 12:37 Microcytosis Not Reportable 05/25/20 12:37 Macrocytosis Not Reportable 05/25/20 12:37 Spherocytes Not Reportable 05/25/20 12:37 Pappenheimer Bodies Not Reportable 05/25/20 12:37 Sickle Cells Not Reportable 05/25/20 12:37 Target Cells Not Reportable 05/25/20 12:37 Tear Drop Cells Not Reportable 05/25/20 12:37 Ovalocytes Not Reportable 05/25/20 12:37 Stomatocytes Few 05/23/20 21:19 Helmet Cells Not Reportable 05/25/20 12:37 Ramírez-Cooper Bodies Not Reportable 05/25/20 12:37 Fairburn Rings Not Reportable 05/25/20 12:37 Rawlings Cells Not Reportable 05/25/20 12:37 Bite Cells Not Reportable 05/25/20 12:37 Crenated Cell Not Reportable 05/25/20 12:37 Elliptocytes Not Reportable 05/25/20 12:37 Acanthocytes (Spur) Not Reportable 05/25/20 12:37 Rouleaux Not Reportable 05/25/20 12:37 Hemoglobin C Crystals Not Reportable 05/25/20 12:37 Schistocytes Not Reportable 05/25/20 12:37 Malaria parasites Not Reportable 05/25/20 12:37 Sven Bodies Not Reportable 05/25/20 12:37 Hem Pathologist Commnt No 05/25/20 12:37 PT 14.4 Sec. (12.2-14.9) 05/23/20 21:19 INR 1.10 (0.87-1.13) 05/23/20 21:19 D-Dimer 416.20 ng/mlDDU (0-234) H 05/24/20 01:24 VBG pH 7.448 (7.320-7.420) H 05/23/20 21:19 Sodium 140 mmol/L (137-145) 05/25/20 08:46 Potassium 3.2 mmol/L (3.6-5.0) L 05/25/20 08:46 Chloride 103.3 mmol/L (98-107) 05/25/20 08:46 Carbon Dioxide 23 mmol/L (22-30) 05/25/20 08:46 Anion Gap 17 mmol/L 05/25/20 08:46 BUN 5 mg/dL (7-17) L 05/25/20 08:46 Creatinine 0.7 mg/dL (0.6-1.2) 05/25/20 08:46 Estimated GFR > 60 ml/min 05/25/20 08:46 BUN/Creatinine Ratio 7 % 05/25/20 08:46 Glucose 106 mg/dL (65-100) H 05/25/20 08:46 Hemoglobin A1c 5.2 % (4-6) 05/24/20 06:00 Lactic Acid 1.10 mmol/L (0.7-2.0) 05/24/20 01:24 Calcium 8.3 mg/dL (8.4-10.2) L 05/25/20 08:46 Ferritin 111.0 ng/mL (10.0-200.0) 05/24/20 01:24 Total Bilirubin 0.80 mg/dL (0.1-1.2) 05/25/20 08:46 AST 11 units/L (5-40) 05/25/20 08:46 ALT 11 units/L (7-56) 05/25/20 08:46 Alkaline Phosphatase 102 units/L (35-129) 05/25/20 08:46 Lactate Dehydrogenase 183 units/L (91-180) H 05/24/20 01:24 C-Reactive Protein 30.60 mg/dL (0.00-1.30) H 05/24/20 01:24 Total Protein 6.6 g/dL (6.3-8.2) 05/25/20 08:46 Albumin 3.0 g/dL (3.9-5) L 05/25/20 08:46 Albumin/Globulin Ratio 0.8 % 05/25/20 08:46 Procalcitonin 13.74 ng/mL (<0.15) 05/24/20 01:24 HCG, Qual Negative (Negative) 05/23/20 21:19 Urine Color Straw (Yellow) 05/23/20 Unknown Urine Turbidity Clear (Clear) 05/23/20 Unknown Urine pH 6.0 (5.0-7.0) 05/23/20 Unknown Ur Specific Alpine 1.027 (1.003-1.030) 05/23/20 Unknown Urine Protein <15 mg/dl mg/dL (Negative) 05/23/20 Unknown Urine Glucose (UA) Neg mg/dL (Negative) 05/23/20 Unknown Urine Ketones Neg mg/dL (Negative) 05/23/20 Unknown Urine Blood Sm (Negative) 05/23/20 Unknown Urine Nitrite Neg (Negative) 05/23/20 Unknown Urine Bilirubin Neg (Negative) 05/23/20 Unknown Urine Urobilinogen < 2.0 mg/dL (<2.0) 05/23/20 Unknown Ur Leukocyte Esterase Neg (Negative) 05/23/20 Unknown Urine WBC (Auto) 2.0 /HPF (0.0-6.0) 05/23/20 Unknown Urine RBC (Auto) 2.0 /HPF (0.0-6.0) 05/23/20 Unknown U Epithel Cells (Auto) 1.0 /HPF (0-13.0) 05/23/20 Unknown Urine Mucus Few /HPF 05/23/20 Unknown Coronavirus (PCR) Negative (Negative) 05/24/20 10:24 Microbiology: Microbiology 05/23/20 Unknown Urine,Clean Catch Urine Culture - Preliminary NO GROWTH AFTER 24 HOURS 05/23/20 21:19 Peripheral/Venous Blood Culture - Preliminary NO GROWTH AFTER 24 HOURS 05/23/20 21:28 Peripheral/Venous Blood Culture - Preliminary NO GROWTH AFTER 24 HOURS Brito/IV: Voiding Method Toilet IV Catheter Type [Right INT / Saline Lock Antecubital] Active Medications - Current Medications Current Medications: Generic Name Dose Route Start Last Admin Trade Name Freq PRN Reason Stop Dose Admin Acetaminophen 650 mg 05/24/20 05:58 05/24/20 14:07 Tylenol PO 650 mg Q4H PRN Administration Pain MILD(1-3)/Fever >100.5/MISTRY Emtricitabine 200 mg 05/24/20 16:00 05/25/20 09:32 Emtriva PO 200 mg QDAY TRIXIE Administration Enoxaparin Sodium 40 mg 05/24/20 10:00 05/25/20 09:32 Enoxaparin SUB-Q 40 mg QDAY TRIXIE Administration Famotidine 20 mg 05/24/20 10:00 05/25/20 09:32 Pepcid PO 20 mg BID TRIXIE Administration Hydromorphone HCl 0.5 mg 05/24/20 05:58 05/24/20 23:19 Dilaudid IV 0.5 mg Q3H PRN Administration Pain , Severe (7-10) Sodium Chloride 1,000 mls @ 100 mls/hr 05/24/20 06:00 05/25/20 08:04 Nacl 0.9% 1000 Ml IV 100 mls/hr DIRECT TRIXIE Administration Cefepime HCl 1 gm in 100 mls @ 200 mls/hr 05/24/20 16:00 05/25/20 15:57 Cefepime/Ns 1 Gm/100 Ml IV 200 mls/hr Q8H TRIXIE Administration Protocol Ondansetron HCl 4 mg 05/24/20 05:58 05/24/20 22:36 Zofran IV 4 mg Q8H PRN Administration Nausea And Vomiting Oxycodone/Acetaminophen 1 tab 05/24/20 05:58 05/25/20 13:16 Percocet 5/325 PO 1 tab Q6H PRN Administration Pain, Moderate (4-6) Sodium Chloride 10 ml 05/24/20 10:00 05/25/20 09:33 Sodium Chloride Flush Syringe 10 Ml IV Not Given BID TRIXIE Sodium Chloride 10 ml 05/24/20 05:58 Sodium Chloride Flush Syringe 10 Ml IV PRN PRN LINE FLUSH Tenofovir Disoproxil Fumarate 300 mg 05/24/20 16:00 05/25/20 09:32 Viread PO 300 mg QDAY TRIXIE Administration
--- NOTE | 2020-05-25 16:22 | Discharge Summary ---
Providers - Providers Date of Admission: 05/24/20 02:58 Date of discharge: 05/25/20 Attending physician: FELICIA BRADLEY 05/24/20 01:44 Consult to Physician [CONS] Routine Comment: Consulting Provider: MATEO ARAUZ Physician Instructions: Reason For Exam: pui Primary care physician: DANCE CRITIC Hospitalization Reason for admission: Right flank pain fever/acute pyelonephritis/UTI Condition: Critical Pertinent studies: CT abdomen and pelvis ;right kidney calculi and pelvis. Right pyelonephritis Chest x-ray; no acute abnormality noted Hospital course: 24-year-old morbidly obese female patient with significant past medical history of HIV follows with private infectious [facility] was admitted through emergency room with right flank pain and fever, and cough and shortness of breath for the last 3 days Initial evaluation in the emergency room is consistent with severe leukocytosis, CT abdomen and pelvis findings consistent with right pyelonephritis. Patient was also high suspicion for COVID-19, admitted placed on isolation, evaluated by ID, patient was started on IV antibiotics. Cultures negative for 24 hours, patient has personal commitments and small children, patient pleaded to be discharged ID recommended p.o. antibiotics, patient strongly advised to go to the nearest emergency room should she have any fever or worsening symptoms And follow with [facility] in 2 to 3 days. Patient verbalized understanding. Patient is hemodynamically stable With guarded prognosis.ID cleared for discharge and follow-up with private ID [facility]. Discharge diagnosis; Management; --Suspicion for COVID/P UI; Joyce PCR negative DC isolation --Acute right-sided pyelonephritis; IV fluids, IV antibiotics cefepime Follow cultures, supportive care --Sepsis secondary to pyelonephritis; Continue above treatment --Cough and congestion chest, chest x-ray no pneumonia COVID-19 test negative, cough medicine and supportive care --H/O HIV; patient follows with [facility] Advised to follow upon discharge --Morbid obesity; BMI 39.3 Counseling done advised diet restriction , exercise as tolerated and weight reduction And lifestyle modification when medically stable --DVT prophylaxis; Lovenox We will closely monitor the patient and adjust management as needed Plan of care reviewed with the patient and her nurse I also discussed with ID Dr. Beebe Patient is begging and pleading to be discharged However I explained to the patient the importance of getting the treatment for acute pyelonephritis With IV antibiotics at least for total 3 days, and transition to oral antibiotics and follow-up with ID as outpatient. ID recommend p.o. cefdinir 300 mg twice a day for 10 days, if patient insists on leaving and to follow-up with outpatient ID And call and find out the pending cultures and sensitivities. The above recommendations discussed with the patient Disposition: DC-01 TO HOME OR SELFCARE Time spent for discharge: 33 min Exam - Constitutional Vitals: Temp Pulse Resp BP Pulse Ox 98.7 F 71 18 135/94 100 05/25/20 15:33 05/25/20 15:33 05/25/20 15:33 05/25/20 15:33 05/25/20 15:33 General appearance: Present: no acute distress, well-nourished, obese - EENT Eyes: Present: PERRL, EOM intact - Neck Neck: Present: supple, normal ROM - Respiratory Respiratory effort: normal Respiratory: bilateral: diminished, negative: rales, rhonchi, wheezing - Cardiovascular Rhythm: regular Heart Sounds: Present: S1 & S2 - Extremities Extremities: no ischemia, No edema - Abdominal General gastrointestinal: Present: non-tender, non-distended, normal bowel sounds - Integumentary Integumentary: Present: clear, warm - Musculoskeletal Musculoskeletal: strength equal bilaterally - Psychiatric Psychiatric: appropriate mood/affect, cooperative - Neurologic Neurologic: moves all extremities Plan Activity: no restrictions Diet: regular Additional Instructions: Plenty of oral fluids. If you have worsening symptoms contact MD or go to the nearest emergency room immediately. Advised to follow ID associates in 2 to 3 days time or [facility] Follow up with: PRIMARY CARE,MD [Primary Care Provider] - 3-5 Days Prescriptions: Cefdinir 300 mg PO BID #20 capsule oxyCODONE /ACETAMINOPHEN [Percocet 5/325 mg] 1 tab PO Q8H PRN #15 tablet PRN Reason: Pain, Moderate (4-6)
[2020-05-25 20:48] VITALS: BP 130/88
== END 2020-05-25 20:45 | disposition home or self-care (01) ==
LOC: ED 21:03 → 3A 05-24 01:39 → OBSVTOIN 05-24 02:58 → INTOOBSV 05-24 02:58 → 3A 05-24 06:06
PROVIDERS: ADMIT Internal Medicine; ATTEND Internal Medicine
DX: A41.9 Sepsis, unspecified organism (principal); Z20.828 Contact with and (suspected) exposure to other viral communicable diseases; N12 Tubulo-interstitial nephritis, not specified as acute or chronic; R05 Cough; R30.0 Dysuria; R00.0 Tachycardia, unspecified; E66.01 Morbid (severe) obesity due to excess calories; Z68.39 Body mass index [BMI] 39.0-39.9, adult; Z21 Asymptomatic human immunodeficiency virus [HIV] infection status; Z79.899 Other long term (current) drug therapy
CPT/HCPCS: 36415; 71045; 74177; 80053; 81001; 82140; 82728; 82805; 82947; 83036; 83615; 84145; 84703; 85007; 85025; 85379; 85610; 86140; 87040; 87086; 93005; 96361; 96365; 96366; 96367; 96372; 96375; 96376; 99291; G0378; J0456; J0692; J1170; J1650; J2405; J7030; J7040; J7050; Q9967; U0003

== ENCOUNTER 2022-04-02 08:48 | Emergency (ER) | payer OTHER | END 2022-04-02 14:27 | disposition left against medical advice (07) | LOC: ED 08:48 | DX: H66.92 Otitis media, unspecified, left ear (principal); Z53.21 Procedure and treatment not carried out due to patient leaving prior to being seen by health care provider ==

== ENCOUNTER 2022-04-18 23:00 | Emergency (ER) | payer OTHER ==
[2022-04-19] MEDS ORDERED: AMOXICILLIN/K CLAV 875/125MG TAB PO ONE (03:09)
[2022-04-19] MEDS ORDERED: ONDANSETRON 4 MG ODT TAB PO ONE (03:09)
[2022-04-19] MEDS ORDERED: IBUPROFEN 600 MG TAB PO ONE (03:09)
[2022-04-19] MEDS ORDERED: HYDROcodone/ACETAMINOPHEN 5-325 MG TAB PO ONE (03:09)
--- NOTE | 2022-04-19 04:31 | Emergency Department Report ---
ED General Adult HPI - General Chief complaint: Earache Stated complaint: FEVER/NAUSEA/EARACHE Source: patient Mode of arrival: Ambulatory Limitations: No Limitations - History of Present Illness Initial comments: Patient is a 26-year-old female with a history of HIV who presents to the ED with complaint of acute onset persistent nasal and sinus congestion, frontal sinus pressure and headache, bilateral ear pain and dry cough for the last 4 days. Patient states that the symptoms have been constant and persistent and especially worse at night. Patient states that no one else at home is had similar symptoms. Patient denies dizziness, syncope, chest pain, shortness of breath, fever, chills, sore throat, nausea and vomiting or diarrhea, abdominal pain, dysuria, urinary frequency and urgency or hearing loss. MD Complaint: Cough; bilateral ear pain; nasal congestion -: Gradual, days(s) (4) Location: face (bilateral ear pain) Radiation: non-radiation Severity scale (0 -10): 6 Quality: aching, sharp, constant Consistency: constant Improves with: none Worsens with: none Associated Symptoms: denies other symptoms, cough, headaches. denies: confusion, chest pain, diaphoresis, fever/chills, loss of appetite, malaise, nausea/vomiting, rash, seizure, shortness of breath, syncope, weakness Treatments Prior to Arrival: none - Related Data Home Medications Medication Instructions Recorded Confirmed Last Taken Genvoya Tablet 1 tab PO DAILY 05/24/20 05/24/20 Unknown Previous Rx's Medication Instructions Recorded Last Taken Type Cefdinir 300 mg PO BID #20 capsule 05/25/20 Unknown Rx oxyCODONE /ACETAMINOPHEN [Percocet 1 tab PO Q8H PRN #15 tablet 05/25/20 Unknown Rx 5/325 mg] Amoxicillin/K Clav Tab [Augmentin 1 tab PO Q12HR #20 tab 04/19/22 Unknown Rx 875 mg] Benzonatate [Tessalon Perles] 100 mg PO Q8HR #30 cap 04/19/22 Unknown Rx Cetirizine HCl [Zyrtec 10mg tab] 10 mg PO DAILY #30 tab 04/19/22 Unknown Rx Ibuprofen [Motrin] 800 mg PO Q8HR PRN #30 tablet 04/19/22 Unknown Rx Ofloxacin 0.3% [Floxin 0.3% Otic] 3 drop OT BID #5 ml 04/19/22 Unknown Rx Allergies Allergy/AdvReac Type Severity Reaction Status Date / Time No Known Allergies Allergy Verified 03/31/19 12:27 ED Review of Systems ROS: Stated complaint: FEVER/NAUSEA/EARACHE Other details as noted in HPI Constitutional: denies: chills, fever Eyes: denies: eye pain, eye discharge, vision change ENT: ear pain (bilateral), congestion, other (nasal and sinus congestion with pressure). denies: throat pain Respiratory: cough. denies: shortness of breath, wheezing Cardiovascular: denies: chest pain, palpitations Endocrine: no symptoms reported Gastrointestinal: denies: abdominal pain, nausea, vomiting, diarrhea Genitourinary: denies: urgency, dysuria, discharge Musculoskeletal: denies: back pain, joint swelling, arthralgia Skin: denies: rash, lesions Neurological: headache. denies: weakness, paresthesias Psychiatric: denies: anxiety, depression Hematological/Lymphatic: denies: easy bleeding, easy bruising ED Past Medical Hx - Past Medical History Previous Medical History?: Yes Hx Hypertension: No Hx Heart Attack/AMI: No Hx Congestive Heart Failure: No Hx Diabetes: No Hx Deep Vein Thrombosis: No Hx Liver Disease: No Hx Renal Disease: No Hx Sickle Cell Disease: No Hx Seizures: No Hx Kidney Stones: No Hx Asthma: No Hx COPD: No Hx HIV: Yes Additional medical history: constipation - Surgical History Hx Pacemaker: No Hx Internal Defibrillator: No - Social History Smoking Status: Never Smoker - Medications Home Medications: Home Medications Medication Instructions Recorded Confirmed Last Taken Type Genvoya Tablet 1 tab PO DAILY 05/24/20 05/24/20 Unknown History Cefdinir 300 mg PO BID #20 capsule 05/25/20 Unknown Rx oxyCODONE /ACETAMINOPHEN [Percocet 1 tab PO Q8H PRN #15 tablet 05/25/20 Unknown Rx 5/325 mg] Amoxicillin/K Clav Tab [Augmentin 1 tab PO Q12HR #20 tab 04/19/22 Unknown Rx 875 mg] Benzonatate [Tessalon Perles] 100 mg PO Q8HR #30 cap 04/19/22 Unknown Rx Cetirizine HCl [Zyrtec 10mg tab] 10 mg PO DAILY #30 tab 04/19/22 Unknown Rx Ibuprofen [Motrin] 800 mg PO Q8HR PRN #30 tablet 04/19/22 Unknown Rx Ofloxacin 0.3% [Floxin 0.3% Otic] 3 drop OT BID #5 ml 04/19/22 Unknown Rx ED Physical Exam - General Limitations: No Limitations General appearance: alert, in no apparent distress - Head Head exam: Present: atraumatic, normocephalic, normal inspection - Eye Eye exam: Present: normal appearance, PERRL, EOMI Pupils: Present: normal accommodation - ENT ENT exam: Present: normal orophraynx, mucous membranes moist, TM's normal bilaterally, normal external ear exam, other (Grossly congested nasal passages; palpable frontal sinus tenderness; bilateral erythematous bulging tympanic membranes with effusion) - Neck Neck exam: Present: normal inspection, full ROM. Absent: tenderness - Respiratory Respiratory exam: Present: normal lung sounds bilaterally. Absent: respiratory distress, wheezes, rales, rhonchi, chest wall tenderness, accessory muscle use, decreased breath sounds, other - Cardiovascular Cardiovascular Exam: Present: regular rate, normal rhythm, normal heart sounds. Absent: systolic murmur, diastolic murmur, rubs, gallop - GI/Abdominal GI/Abdominal exam: Present: soft, normal bowel sounds. Absent: tenderness, guarding, rebound, hyperactive bowel sounds, hypoactive bowel sounds, organomegaly - Extremities Exam Extremities exam: Present: normal inspection, full ROM, normal capillary refill. Absent: tenderness - Back Exam Back exam: Present: normal inspection, full ROM. Absent: tenderness, CVA tender ness (R), CVA tenderness (L), muscle spasm, paraspinal tenderness, vertebral tenderness - Neurological Exam Neurological exam: Present: alert, oriented X3, CN II-XII intact, normal gait, reflexes normal - Psychiatric Psychiatric exam: Present: normal affect, normal mood - Skin Skin exam: Present: warm, dry, intact, normal color. Absent: rash ED Course Vital Signs 04/18/22 23:11 Temperature 99.0 F Pulse Rate 76 Respiratory 18 Rate Blood Pressure 145/86 O2 Sat by Pulse 97 Oximetry ED Medical Decision Making - Medical Decision Making This is a 26-year-old female with a history of HIV who presents to the ED with complaint of acute onset persistent nasal and sinus congestion, frontal sinus pressure and headache, bilateral ear pain and dry cough for the last 4 days. Patient states that the symptoms have been constant and persistent and especially worse at night. Patient states that no one else at home is had similar symptoms. In the ED, patient is alert and oriented x3 and is not in any distress. Patient was treated in the ED for pain and discharged home on pain medication and antibiotics and advised to follow-up with her primary care physician in 7 to 10 days for reevaluation. Patient was advised return to the ED immediately if symptoms get worse. - Differential Diagnosis otitis media; URI; Bronchitis; sinusitis Critical care attestation.: If time is entered above; I have spent that time in minutes in the direct care of this critically ill patient, excluding procedure time. ED Disposition Clinical Impression: Acute upper respiratory infection, Acute otitis media with effusion of both ears Acute frontal sinusitis Qualifiers: Recurrence: non-recurrent Qualified Code(s): J01.10 - Acute frontal sinusitis, unspecified Acute bronchitis Qualifiers: Bronchitis organism: unspecified organism Qualified Code(s): J20.9 - Acute bronchitis, unspecified Disposition: 01 HOME / SELF CARE / HOMELESS Is pt being admited?: No Does the pt Need Aspirin: No Condition: Stable Instructions: Acute Bronchitis (ED), Ear Drops, Adult, [id number], Otitis Media, Adult, [id number], Upper Respiratory Infection, Adult, [id number], Sinusitis, Adult, [id number], Cough, Adult, [id number], Acute Bronchitis, Adult, [id number] Additional Instructions: Take medication with food, drink plenty of fluids, follow-up with your primary care physician in 7 to 10 days for reevaluation. Return to the ED immediately if symptoms get worse Prescriptions: Amoxicillin/K Clav Tab [Augmentin 875 mg] 1 tab PO Q12HR #20 tab Ofloxacin 0.3% [Floxin 0.3% Otic] 3 drop OT BID #5 ml Ibuprofen [Motrin] 800 mg PO Q8HR PRN #30 tablet PRN Reason: Pain , Severe (7-10) Benzonatate [Tessalon Perles] 100 mg PO Q8HR #30 cap Cetirizine HCl [Zyrtec 10mg tab] 10 mg PO DAILY #30 tab Referrals: [facility] [Provider Group] - 7-10 days Time of Disposition: 04:29 Print Language: UGANDAN
[2022-04-19 05:29] VITALS: BP 151/88
== END 2022-04-19 05:29 | disposition home or self-care (01) ==
LOC: ED 23:00
DX: J01.10 Acute frontal sinusitis, unspecified (principal); J06.9 Acute upper respiratory infection, unspecified; H65.193 Other acute nonsuppurative otitis media, bilateral; J20.9 Acute bronchitis, unspecified
CPT/HCPCS: J3490; Q0162